=== PATIENT | female | born 1960 | race African-American/Black ===

== ENCOUNTER 2025-01-27 18:38 | Inpatient (IN) | payer OTHER ==
[~2025-01-27] VITALS: Ht 162.6 cm; Wt 63.0 kg
--- NOTE | 2025-01-27 19:59 | ED.PDOC ---
History of Present Illness HPI Comments 64-year-old female brought in by EMS presents with a chief complaint of body pain. Patient states that her pain is mainly localized to her bilateral lower legs. Patient mentions that she had an upper extremity EMJ procedure done with her neurologist today. 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 Patient also mentions that she stopped taking her gabapentin after two months, x2 days ago due to getting diarrhea. Patient is anxious. 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 No acute distress. Skin: Skin in warm, dry and intact without rashes or lesions. HEENT: The head is normocephalic and atraumatic. Conjunctivae are clear without exudates or hemorrhage. Sclera is non-icteric. Neck: Normal range of motion. No JVD. Cardiac: Regular rate Respiratory: No signs of respiratory distress. No Stridor. Extremities: Bilateral lower extremity nonpitting edema and tenderness Neurological: The patient is awake, alert and oriented to person, place, and time with normal speech. Speech is clear. There is no facial asymmetry. Psychiatric: Patient appears anxious Review of Systems: REVIEW OF SYSTEMS: No fever, no chills, or fatigue HEENT: No sore throat, no earache, no congestion, no neck pain. Cardiac: No chest pain. No palpitations. Lungs: No shortness of breath, no cough. GI: No nausea, no vomiting, positive diarrhea, no constipation, no abdominal pain : No dysuria, frequency, or urgency. No hematuria. Musculoskeletal: Positive Bilateral lower extremity pain Skin: No rash, no itching. 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 Was a procedure done?: No Differential Dx Considerations may include: DVT, rhabdomyolysis, neuropathy, medication side effect, procedure side effect, electrolyte imbalance, dehydration, lymphedema, medication withdrawal, anxiety, X-Ray, Labs, Meds, VS Vital Signs Date Time Temp Pulse Resp B/P (MAP) Pulse Ox O2 Delivery O2 Flow Rate FiO2 01/28/25 02:00 85 16 126/86 (99) 98 01/28/25 00:00 93 01/28/25 00:00 95 16 129/75 (93) 98 01/27/25 23:29 97.6 74 18 11/61 (45) 99 97.6 01/27/25 23:29 74 16 99 Room Air* 0 21 01/27/25 18:45 97.5 68 22 131/87 (102) 98 97.5 Lab Test 01/28/25 00:27 01/27/25 19:57 Range/Units Potassium Level 2.9 L 2.7 L 3.5-5.1 mmol/L White Blood Count 5.2 4.4-10.8 10^3/uL Red Blood Count 3.90 L 4.0-5.20 10^6/uL Hemoglobin 11.9 L 12.2-16.2 g/dL Hematocrit 35.7 L 36.0-46.0 % Mean Corpuscular Volume 91.7 80.0-100.0 fL Mean Corpuscular Hemoglobin 30.6 28.0-32.0 pg Mean Corpuscular Hemoglobin Concent 33.4 32.0-36.0 g/dL Red Cell Distribution Width 12.8 11.8-14.3 % Platelet Count 211 140-450 10^3/uL Mean Platelet Volume 8.7 6.9-10.8 fL Neutrophils (%) (Auto) 54.6 37.0-80.0 % Lymphocytes (%) (Auto) 32.2 10.0-50.0 % Monocytes (%) (Auto) 11.1 0.0-12.0 % Eosinophils (%) (Auto) 1.3 0.0-7.0 % Basophils (%) (Auto) 0.8 0.0-2.0 % Neutrophils # (Auto) 2.8 1.6-8.6 10 ^3/uL Lymphocytes # (Auto) 1.7 0.4-5.4 10 ^3/uL Monocytes # (Auto) 0.6 0-1.3 10 ^3/uL Eosinophils # (Auto) 0.1 0-0.8 10 ^3/uL Basophils # (Auto) 0 0-0.2 10 ^3/uL Nucleated Red Blood Cells 0.1 % Sodium Level 146 H 136-145 mmol/L Chloride Level 110 H 98-107 mmol/L Carbon Dioxide Level 23 20-31 mmol/L Anion Gap 13 5-15 Blood Urea Nitrogen 13 9-23 mg/dL Creatinine 0.62 0.550-1.02 mg/dL Glomerular Filtration Rate Calc 101 >90 mL/min BUN/Creatinine Ratio 21.0 H 10.0-20.0 Serum Glucose 102 74-106 mg/dL Calcium Level 9.5 8.7-10.4 mg/dL Magnesium Level 2.0 1.6-2.6 mg/dL Creatine Kinase 61 34-145 U/L Current Medications Medications (Trade) Dose Ordered Sig/Debi Route Start Time Stop Time Status Last Admin Clonazepam (KlonoPIN TABLET) 1 mg ONCE ONCE PO 01/27/25 20:00 01/27/25 20:01 DC 01/27/25 20:18 Tramadol HCl (Ultram) 50 mg ONCE ONCE PO 01/27/25 21:00 01/27/25 21:01 DC 01/27/25 22:24 Potassium Chloride (Klor-Con Tablet) 40 meq ONCE ONCE PO 01/27/25 21:00 01/27/25 21:01 DC 01/27/25 22:24 Sodium Chloride (Saline Lock Ns) 10 ml Q8HR IV 01/27/25 22:00 01/27/25 22:00 Acetaminophen/ Hydrocodone Bitart ([place] 5/325MG Tab) 1 tab Q4HP PRN PO 01/27/25 21:30 01/28/25 02:12 Clonazepam (KlonoPIN TABLET) 1 mg TID PO 01/27/25 22:00 01/27/25 23:13 Duloxetine HCl (Cymbalta Capsule) 60 mg BID PO 01/27/25 22:00 01/27/25 22:23 Potassium Chloride 50 ml @ 25 mls/hr ONCE ONCE IV 01/27/25 21:00 01/27/25 22:59 DC 01/27/25 23:12 Sodium Chloride 100 ml @ 50 mls/hr Q2H ONCE IV 01/27/25 21:00 01/27/25 22:59 DC 01/27/25 21:00 Potassium Chloride (Klor-Con Tablet) 40 meq ONCE ONCE PO 01/28/25 01:15 01/28/25 01:40 DC 01/28/25 02:13 Time of 1ST Reevaluation: 20:07 Reevaluation 1ST: Unchanged Patient Education/Counseling: Need For Follow Up Family Education/Counseling: Need For Follow Up Departure 1 Departure Time of Disposition: 20:58 Impression: Primary Impression: Hypokalemia Additional Impression: Intractable pain Disposition: ADMITTED INPATIENT Condition: Stable Comments 64-year-old female who presents with severe bilateral lower extremity pain. Potassium is 2.7. Potassium replacement initiated in the emergency department. Patient admitted to hospitalist service for further treatment, evaluation and monitoring. Extensive evaluation was performed in attempt to identify or rule out: (See differential diagnosis section) The following tests were ordered, and results were reviewed by me and discussed with patient: (See diagnostic results section) The following test were independently interpreted by me: N/A I reviewed and agreed with the following test results read by other providers: N/A I reviewed the following notes from the pt's past medical encounters: N/A Additional information was gathered from interviewing the following independent historians: EMS personnel, patient's son at bedside Discussion of management or test interpretation with external physician/other qualified health care specialist: N/A Addressed an acute or chronic illness that poses a threat to life or bodily function: Hypokalemia Decision regarding hospitalization or escalation of hospital level of care: Risk and benefits of admission for further treatment of patient's condition was considered. Due to patient's current clinical condition, high risk of decline and poor outcome if discharged and need for further inpatient management and monitoring, patient will be admitted to the hospital. Drug therapy requiring intensive monitoring for toxicity: IV potassium Parenteral controlled substances: N/A Decision regarding elective major surgery with identified patient or procedure risk factors: N/A Decision regarding emergency major surgery: N/A Decision not to resuscitate or to de-escalate care because of poor prognosis: N/A Diagnosis or treatment significantly limited by social determinants of health: N/A Critical Care Note Critical Care Time?: No Stability Stability form required: No Heart Score Heart Score: Heart Score Response (Comments) Value History N/A 0 EKG N/A 0 Age N/A 0 Risk Factors N/A 0 Troponin N/A 0 Total 0 I personally scribed for RAPHAEL THOMPSON MD ([email or web address]) on 01/27/25 at 19:59. Electronically submitted by Zacarias Thompson ([email or web address]). RAPHAEL THOMPSON MD January 27, 2025 19:59
[2025-01-27 20:12] LABS: Basophils # (auto) 0 10 ^3/uL (0-0.2); Basophils % (auto) 0.8 % (0.0-2.0); Eosinophils # (auto) 0.1 10 ^3/uL (0-0.8); Eosinophils % (auto) 1.3 % (0.0-7.0); Hematocrit 35.7 % (36.0-46.0); Hemoglobin 11.9 g/dL (12.2-16.2); Lymphocytes # (auto) 1.7 10 ^3/uL (0.4-5.4); Lymphocytes % (auto) 32.2 % (10.0-50.0); Mean Corpuscular Hemoglobin 30.6 pg (28.0-32.0); Mean Corpuscular Hgb Conc. 33.4 g/dL (32.0-36.0); Mean Corpuscular Volume 91.7 fL (80.0-100.0); Monocytes # (auto) 0.6 10 ^3/uL (0-1.3); Monocytes % (auto) 11.1 % (0.0-12.0); Neutrophils # (auto) 2.8 10 ^3/uL (1.6-8.6); Neutrophils % (auto) 54.6 % (37.0-80.0); Nucleated Red Blood Cells % 0.1 %; Platelet Count (auto) 211 10^3/uL (140-450); Red Cell Distribution Width 12.8 % (11.8-14.3); White Blood Cell 5.2 10^3/uL (4.4-10.8)
[2025-01-27 20:16] LABS: Anion Gap 13 (5-15); Calcium 9.5 mg/dL (8.7-10.4); Carbon Dioxide 23 mmol/L (20-31)
[2025-01-27] MEDS: clonazePAM 0.5 MG TAB PO ONE (20:18)
[2025-01-27] MEDS: KETOROLAC TROMETH 30 MG/ML 1ML VIAL IM ONE (20:19)
[2025-01-27] MEDS: ACETAMINOPHEN 325 MG TAB PO ONE (20:19)
[2025-01-27 20:21] LABS: Blood Urea Nitrogen 13 mg/dL (9-23); Glucose 102 mg/dL (74-106)
[2025-01-27 20:23] LABS: Creatine Kinase IFCC 61 U/L (34-145)
[2025-01-27 20:42] LABS: Chloride 110 mmol/L (98-107); Potassium 2.7 mmol/L (3.5-5.1); Sodium 146 mmol/L (136-145)
[2025-01-27] MEDS: SODIUM CHL 0.9% 100 ML IV ONE (21:00)
[2025-01-27] MEDS: SODIUM CHLORIDE 0.9% 1,000 ML IV ONE (21:00)
[2025-01-27] MEDS ORDERED: POTASSIUM CHL 20MEQ/100ML 100 ML IV ONE (21:00)
[2025-01-27] MEDS ORDERED: DOCUSATE SOD 100 MG CAP PO PRN (21:30)
[2025-01-27] MEDS ORDERED: MORPHINE SULFATE INJ 2 MG/ml SYRG IV PRN (21:30)
[2025-01-27] MEDS ORDERED: ONDANSETRON HCL 4 MG/2 ML VIAL IV PRN (21:30)
[2025-01-27] MEDS ORDERED: ACETAMINOPHEN 325 MG TAB PO PRN (21:30)
[2025-01-27] MEDS: SODIUM CHLOR 0.9% PF (SALINE LOCK) 10ML VIAL/SYR IV SCH (22:00)
[2025-01-27] MEDS: clonazePAM 0.5 MG TAB PO SCH (22:00)
[2025-01-27] MEDS: DULoxetine HCL 30 MG CAP PO SCH (22:23)
[2025-01-27] MEDS: POTASSIUM CHL 20 Meq TABLET PO ONE (22:24)
[2025-01-27] MEDS: traMADol HCL 50 MG TAB PO ONE (22:24)
--- NOTE | 2025-01-27 22:43 | DVH ---
BILATERAL LOWER EXTREMITY VENOUS DOPPLER ULTRASOUND CLINICAL HISTORY: B/L Le pain r/o dvt TECHNIQUE: Grayscale ultrasound with compression, color Doppler flow imaging with pulsed duplex sonog nabeel of the bilateral lower extremity deep venous system from the common femoral veins through the p opliteal veins is performed. COMPARISON: None FINDINGS: Right common femoral vein: Negative. Right greater saphenous vein: Negative. Right deep femoral vein: Negative. Right femoral vein: Negative. Right popliteal vein: Negative. Left common femoral vein: Negative. Left greater saphenous vein: Negative. Left deep femoral vein: Negative. Left femoral vein: Negative. Left popliteal vein: Negative. Other: Imaged bilateral popliteal bifurcations demonstrate color flow. IMPRESSION: No sonographic evidence of deep venous thrombosis in either lower extremity at this time.
[2025-01-27] MEDS: POTASSIUM CHL 20MEQ/50ML 50 ML IV ONE (23:12)
[2025-01-27 23:29] VITALS: PULSE 74; RESP 16; O2SAT 99
--- NOTE | 2025-01-28 00:41 | DVH ---
Exam: CT CT AB PEL WO CON-NO ORAL OR IV History: diarrhea pain Comparison Study: None Technique: Multidetector spiral CT of the abdomen was performed from lung bases to pubic symphysis. I maging was performed without IV contrast. Axial, coronal and sagittal multiplanar reformats were obta ined from the axial data set by the technologist. Radiation Dose : 1. Abdomen/Pelvis: CTDIvol 9.35 mGy, DLP 486.84 mGy*cm. Findings: Evaluation of solid organs is limited due to lack of intravenous contrast use. Lung Bases: No acute or significant lung base finding. Moderate bibasilar atelectasis. Normal heart s ize. No pleural or pericardial effusion. Bilateral breast prostheses. Liver: The liver is normal in size. No focal lesions. Gallbladder and Biliary Tree: The gallbladder is surgically absent. Spleen: Unremarkable Pancreas: The pancreas is grossly normal in appearance. Adrenal Glands: Unremarkable Kidneys: Kidneys are grossly normal without calculi or hydronephrosis. Bladder: Grossly unremarkable for degree of distention. Bowel: The stomach is grossly normal in appearance. Right paramedian midline ventral abdominal wall h ernia contains a segment of bowel without definite evidence of incarceration or obstruction. Small clinton wel and colon are otherwise grossly normal in caliber and distribution. Anastomotic bowel sutures wi thin the left upper quadrant. The appendix is not visualized; however, no secondary findings of acute appendicitis identified. Ascites: Absent Lymphadenopathy: No mesenteric, retroperitoneal or periportal lymphadenopathy. Abdominal Wall and Mesentery: Unremarkable. Vasculature: The visualized abdominal aorta is normal in size and caliber. Evaluation of abdominal a nd pelvic vessels is limited due to lack of intravenous contrast. Pelvic Organs: Unremarkable Musculoskeletal: No aggressive focal bony lesions, acute fractures or dislocation. IMPRESSION: 1. Postsurgical changes including anastomotic bowel sutures within the left upper quadrant and ventra l abdominal wall surgical scar. A right paramedian ventral abdominal wall hernia contains a single s egment of bowel without gross evidence of incarceration or obstruction. Radiation optimization: All CT scans at this facility use at least one of these dose optimization lakes[place] hniques: automated exposure control mA and/or kV adjustment per patient size (includes targeted exam s where dose is matched to clinical indication) or iterative reconstruction.
[2025-01-28] MEDS ORDERED: ONDANSETRON HCL 4 MG/2 ML VIAL IV PRN (01:15)
[2025-01-28] MEDS ORDERED: NITROGLYCERIN 0.4 MG SL TAB SL PRN (01:15)
[2025-01-28] MEDS ORDERED: DOCUSATE SOD 100 MG CAP PO PRN (01:15)
[2025-01-28] MEDS ORDERED: HYDROcodone-ACET 5/325MG TAB PO PRN (01:15)
[2025-01-28] MEDS ORDERED: ACETAMINOPHEN 325 MG TAB PO PRN (01:15)
[2025-01-28] MEDS ORDERED: MORPHINE SULFATE INJ 2 MG/ml SYRG IV PRN (01:15)
[2025-01-28] MEDS: HYDROcodone-ACET 5/325MG TAB PO PRN (02:12)
[2025-01-28] MEDS: POTASSIUM CHL 20 Meq TABLET PO ONE ×2 (02:13→11:05)
--- NOTE | 2025-01-28 04:04 | DVHHP2 ---
MICHI POON QUALITY AND RELIABILITY ENGINEER 01/28/25 0404: History of Present Illness Reason for Visit: Generalized aches and leg pain History of Present Illness 64-year-old female with past medical history of DM, neuropathy, anxiety, depression, chronic BLE edema secondary to an undisclosed autoimmune disorder presents with complaints of anxiety, generalized body aches, leg pain x1 day. Patient is also endorsing diarrhea x1 month. Patient states her gabapentin was discontinued out of concern that it was contributing to diarrhea. Patient states she ran out of her clonazepam and is not able to get a refill for 5 days. Also endorses leg swelling has worsened since her Lasix was discontinued 3 weeks ago. States Lasix was discontinued because of risk for low potassium. During the emergency department evaluation potassium level found to be low at 2.7. Despite receiving 40 mEq of oral potassium and 20 mEq of IV potassium potassium level maintain low at 2.9. BLE venous Doppler negative for acute DVT. CT of the abdomen and pelvis negative for acute findings. Psych: Anxiety, Depression Endocrine: Diabetes Smoke: No ALCOHOL: none Drugs: None Lives: with Family Review of Systems Constitutional: Yes: Weakness, Other (Anxious); No: Fever, Chills, Sweats, Malaise Eyes: No: Pain, Vision change, Conjunctivae inflammation, Eyelid inflammation, Other, Redness ENT: No: Ear pain, Ear discharge, Nose pain, Nose discharge, Nose congestion, Mouth pain, Mouth swelling, Throat pain, Throat swelling, Other Respiratory: No: Cough, Dry, Shortness of breath, SOB with excertion, Wheezing, Hemoptysis, Pleuritic Pain, Sputum, Wheezing, Other Cardiovascular: Edema; No: Chest Pain, Palpitations, Orthopnea, Paroxysmal Noc. Dyspnea, Lt Headedness, Other Gastrointestinal: Diarrhea; No: Nausea, Vomiting, Abdominal Pain, Constipation, Melena, Hematochezia, Other Genitourinary: No Dysuria, No Frequency, No Incontinence, No Hematuria, No Retention, No Other Musculoskeletal: other (Leg edema), leg pain; No: neck pain, shoulder pain, arm pain, back pain, hand pain, foot pain Skin: No: Rash, Lesions, Jaundice, Bruising, Other Neurological: No: Weakness, Numbness, Incoordination, Change in speech, Confusion, Seizures, Other Allergies: Coded Allergies: Vancomycin (Verified Allergy, Severe, 01/27/25) Medications Current Medications Medications Dose Ordered Sig/Debi Route Start Time Stop Time Status Last Admin Dose Admin Sodium Chloride 10 ml Q8HR IV 01/27/25 22:00 01/27/25 22:00 10 ML Acetaminophen/ Hydrocodone Bitart 1 tab Q4HP PRN PO 01/27/25 21:30 01/28/25 02:12 1 TAB Ondansetron HCl 4 mg Q4HP PRN IV 01/27/25 21:30 Docusate Sodium 100 mg BIDPRN PRN PO 01/27/25 21:30 Acetaminophen 650 mg Q6HP PRN PO 01/27/25 21:30 Morphine Sulfate 2 mg Q4HPRN PRN IV 01/27/25 21:30 Clonazepam 1 mg TID PO 01/27/25 22:00 01/27/25 23:13 1 MG Duloxetine HCl 60 mg BID PO 01/27/25 22:00 01/27/25 22:23 60 MG Docusate Sodium 100 mg BIDPRN PRN PO 01/28/25 01:15 Acetaminophen 650 mg Q6HP PRN PO 01/28/25 01:15 Acetaminophen/ Hydrocodone Bitart 1 tab Q4HP PRN PO 01/28/25 01:15 Ondansetron HCl 4 mg Q4HP PRN IV 01/28/25 01:15 Nitroglycerin 0.4 mg Q5MINP PRN SL 01/28/25 01:15 Morphine Sulfate 2 mg Q30M PRN IV 01/28/25 01:15 Potassium Chloride 20 meq DAILY PO 01/28/25 10:00 UNV Furosemide 20 mg BIDD PO 01/28/25 06:00 UNV Exam Vital Signs Vital Signs Date Time Temp Pulse Resp B/P (MAP) Pulse Ox O2 Delivery O2 Flow Rate FiO2 01/28/25 02:00 85 16 126/86 (99) 98 01/27/25 23:29 97.6 97.6 01/27/25 23:29 Room Air* 0 21 General Appearance: Alert, Oriented X3, Cooperative, mild distress HEENT: Atraumatic, PERRLA, EOMI Respiratory: Clear to auscultation, Normal air movement Cardiovascular: Regular rate, Normal S1, Normal S2 Abdominal: Normal bowel sounds, Soft, No tenderness Extremities: No clubbing, Other (BLE Weeping edema) Skin: No breakdown Neuro: Normal speech, Strength at 01/27 X4 ext Psych/Mental Status: Mental status NL, Mood NL Labs/Xrays Labs Test 01/28/25 00:27 01/27/25 19:57 Range/Units Potassium Level 2.9 L 3.5-5.1 mmol/L White Blood Count 5.2 4.4-10.8 10^3/uL Red Blood Count 3.90 L 4.0-5.20 10^6/uL Hemoglobin 11.9 L 12.2-16.2 g/dL Hematocrit 35.7 L 36.0-46.0 % Mean Corpuscular Volume 91.7 80.0-100.0 fL Mean Corpuscular Hemoglobin 30.6 28.0-32.0 pg Mean Corpuscular Hemoglobin Concent 33.4 32.0-36.0 g/dL Red Cell Distribution Width 12.8 11.8-14.3 % Platelet Count 211 140-450 10^3/uL Mean Platelet Volume 8.7 6.9-10.8 fL Neutrophils (%) (Auto) 54.6 37.0-80.0 % Lymphocytes (%) (Auto) 32.2 10.0-50.0 % Monocytes (%) (Auto) 11.1 0.0-12.0 % Eosinophils (%) (Auto) 1.3 0.0-7.0 % Basophils (%) (Auto) 0.8 0.0-2.0 % Neutrophils # (Auto) 2.8 1.6-8.6 10 ^3/uL Lymphocytes # (Auto) 1.7 0.4-5.4 10 ^3/uL Monocytes # (Auto) 0.6 0-1.3 10 ^3/uL Eosinophils # (Auto) 0.1 0-0.8 10 ^3/uL Basophils # (Auto) 0 0-0.2 10 ^3/uL Nucleated Red Blood Cells 0.1 % Sodium Level 146 H 136-145 mmol/L Chloride Level 110 H 98-107 mmol/L Carbon Dioxide Level 23 20-31 mmol/L Anion Gap 13 5-15 Blood Urea Nitrogen 13 9-23 mg/dL Creatinine 0.62 0.550-1.02 mg/dL Glomerular Filtration Rate Calc 101 >90 mL/min BUN/Creatinine Ratio 21.0 H 10.0-20.0 Serum Glucose 102 74-106 mg/dL Calcium Level 9.5 8.7-10.4 mg/dL Magnesium Level 2.0 1.6-2.6 mg/dL Creatine Kinase 61 34-145 U/L Assessment/Plan Assessment/Plan Hypokalemia Anxiety DM BLE edema Plan 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 Correct electrolytes as needed. Restart Lasix with potassium supplementation. Blood glucose check ACHS with regular insulin sliding scale coverage Continue home medications. Physical therapy evaluation GI ppx pepcid / dvt ppx lovenox Plan discussed with: Patient My Orders Orders - MICHI POON NP Procedure Category Date Status Time Ct Ab Pel Wo Con-No CT 01/27/25 Resulted Oral Or Iv 22:35 Admit ADMIT 01/28/25 Transmitted 01:10 Code Status CODE 01/28/25 Transmitted 01:10 Vital Signs [facility] 01/28/25 In Process 01:10 Review Orders With [facility] 01/28/25 In Process Adm. 01:10 Consistent DIET 01/28/25 Transmitted Carb(Ccho)Diabetes Breakfast Oxygen By Face Mask RT 01/28/25 Transmitted 01:10 Docusate Sodium PHA 01/28/25 In Process Capsule (Colace 01:15 Acetaminophen Tablet PHA 01/28/25 In Process (Tylenol Tablet) 01:15 Notify Of Changes TANIA 01/28/25 In Process From Base 01:10 Advance Directive TANIA 01/28/25 In Process 01:10 Echo 2d Mode Cardiac US 01/28/25 Logged DOP 01:10 Basic Metabolic Panel LAB 01/28/25 Logged 05:00 Basic Metabolic Panel LAB 01/29/25 Verified 05:00 Basic Metabolic Panel LAB 01/30/25 Verified 05:00 Complete Blood Count LAB 01/28/25 Logged 05:00 Complete Blood Count LAB 01/29/25 Verified 05:00 Complete Blood Count LAB 01/30/25 Verified 05:00 Complete Blood Count LAB 01/31/25 Verified 05:00 Complete Blood Count LAB 02/01/25 Verified 05:00 Patient Condition ORDERS 01/28/25 Transmitted 01:10 Allergies TANIA 01/28/25 In Process 01:10 Hydrocodone-Acet PHA 01/28/25 In Process 5/325mg Tab ([place] 01:15 Ondansetron Hcl PHA 01/28/25 In Process (Zofran) 01:15 Nitroglycerin PHA 01/28/25 In Process Sublingual (Ntrostat 01:15 Morphine Sulfate PHA 01/28/25 In Process Injection 01:15 Stat Ekg For Chest TANIA 01/28/25 In Process Pain 01:10 Notify Md Of Changes TANIA 01/28/25 In Process From Base 01:10 Display Carver For [facility] 01/28/25 In Process 24 Hours 01:10 Emergency Dysrhythmia [facility] 01/28/25 In Process Protocol 01:10 Rhythm Strips Once [facility] 01/28/25 In Process Every Shift 01:10 Oxygen By Nasal RT 01/28/25 Transmitted Cannula 01:10 Pt Request For Service PT 01/28/25 Transmitted 03:46 Potassium Er Tablet PHA 01/28/25 Logged (Klor-Con Tablet) 10:00 Furosemide Tablet PHA 01/28/25 Logged (Lasix Tablet) 06:00 Date of Service: January 28, 2025 Billing Provider: IVETTE URIAS MD Common Visit Codes: NOT BILLABLE IVETTE URIAS MD 01/28/25 1217: Review of Systems Allergies: Coded Allergies: Vancomycin (Verified Allergy, Severe, 01/27/25) Assessment/Plan Assessment/Plan Patient's chart is reviewed and discussed with the nurse practitioner. Patient is seen and evaluated by me today. I agree with the nurse practitioner's evaluation, documentation, assessment and care plan as outlined. Plan discussed with: Patient POONMICHI NP January 28, 2025 04:04 IVETTE URIAS MD January 28, 2025 12:17
[2025-01-28] MEDS: FUROSEMIDE 20 MG TAB PO SCH (06:03)
[2025-01-28 06:28] LABS: Basophils # (auto) 0 10 ^3/uL (0-0.2); Basophils % (auto) 0.5 % (0.0-2.0); Eosinophils # (auto) 0.1 10 ^3/uL (0-0.8); Eosinophils % (auto) 1.6 % (0.0-7.0); Hematocrit 31.7 % (36.0-46.0); Hemoglobin 10.9 g/dL (12.2-16.2); Lymphocytes # (auto) 1.4 10 ^3/uL (0.4-5.4); Lymphocytes % (auto) 34.3 % (10.0-50.0); Mean Corpuscular Hgb Conc. 34.4 g/dL (32.0-36.0); Monocytes # (auto) 0.4 10 ^3/uL (0-1.3); Monocytes % (auto) 10.5 % (0.0-12.0); Neutrophils # (auto) 2.2 10 ^3/uL (1.6-8.6); Neutrophils % (auto) 53.1 % (37.0-80.0); Nucleated Red Blood Cells % 0.1 %; Platelet Count (auto) 191 10^3/uL (140-450); Red Blood Cells 3.52 10^6/uL (4.0-5.20); Red Cell Distribution Width 12.8 % (11.8-14.3); White Blood Cell 4.1 10^3/uL (4.4-10.8)
[2025-01-28 06:32] LABS: Alanine Aminotransferase 21 U/L (7-40); Albumin 3.6 g/dL (3.2-4.8); Anion Gap 10 (5-15); Aspartate Aminotransferase 20 U/L (13-40); Blood Urea Nitrogen 11 mg/dL (9-23); Calcium 9.3 mg/dL (8.7-10.4); Carbon Dioxide 25 mmol/L (20-31); Sodium 145 mmol/L (136-145)
[2025-01-28 06:33] LABS: Alkaline Phosphatase 141 U/L (46-116); Bilirubin, Total 0.4 mg/dL (0.2-1.0); Chloride 110 mmol/L (98-107); Glucose 110 mg/dL (74-106); Potassium 3.5 mmol/L (3.5-5.1)
[2025-01-28 09:03] VITALS: PULSE 74; RESP 19; O2SAT 97
[2025-01-28] MEDS: POTASSIUM CHL 20 Meq TABLET PO SCH (09:11)
[2025-01-28 11:34] VITALS: TEMP 97.9
[2025-01-28] MEDS ORDERED: CHOLESTYRAMINE 4 GM POWDER PO ONE (11:45)
[2025-01-28] MEDS ORDERED: LOPERAMIDE HCL 2 MG CAP/TAB PO PRN (11:45)
[2025-01-28 12:00] VITALS: BP 124/64; PULSE 62; RESP 22; O2SAT 98
[2025-01-28] MEDS ORDERED: CLON-1003 PO (12:13)
[2025-01-28] MEDS ORDERED: FLUO40CA PO (12:13)
[2025-01-28] MEDS ORDERED: CHL4PW PO (12:16)
--- NOTE | 2025-01-28 12:25 | DVHDS2 ---
Discharge Summary Date of Admission January 28, 2025 at 01:10 Date of Discharge: January 28, 2025 Labs/Diagnostic Data: Laboratory Results Test 01/28/25 05:29 01/28/25 05:24 01/27/25 19:57 Sodium Level 145 mmol/L (136-145) Potassium Level 3.5 mmol/L (3.5-5.1) Chloride Level 110 mmol/L (98-107) Carbon Dioxide Level 25 mmol/L (20-31) Anion Gap 10 (5-15) Blood Urea Nitrogen 11 mg/dL (9-23) Creatinine 0.61 mg/dL (0.550-1.02) Glomerular Filtration Rate Calc 101 mL/min (>90) BUN/Creatinine Ratio 18.0 (10.0-20.0) Serum Glucose 110 mg/dL (74-106) Calcium Level 9.3 mg/dL (8.7-10.4) Total Bilirubin 0.4 mg/dL (0.2-1.0) Aspartate Amino Transferase (AST) 20 U/L (13-40) Alanine Aminotransferase (ALT) 21 U/L (7-40) Alkaline Phosphatase 141 U/L (46-116) Total Protein 6.0 g/dL (5.7-8.2) Albumin 3.6 g/dL (3.2-4.8) White Blood Count 4.1 10^3/uL (4.4-10.8) Red Blood Count 3.52 10^6/uL (4.0-5.20) Hemoglobin 10.9 g/dL (12.2-16.2) Hematocrit 31.7 % (36.0-46.0) Mean Corpuscular Volume 90.0 fL (80.0-100.0) Mean Corpuscular Hemoglobin 31.0 pg (28.0-32.0) Mean Corpuscular Hemoglobin Concent 34.4 g/dL (32.0-36.0) Red Cell Distribution Width 12.8 % (11.8-14.3) Platelet Count 191 10^3/uL (140-450) Mean Platelet Volume 9.0 fL (6.9-10.8) Neutrophils (%) (Auto) 53.1 % (37.0-80.0) Lymphocytes (%) (Auto) 34.3 % (10.0-50.0) Monocytes (%) (Auto) 10.5 % (0.0-12.0) Eosinophils (%) (Auto) 1.6 % (0.0-7.0) Basophils (%) (Auto) 0.5 % (0.0-2.0) Neutrophils # (Auto) 2.2 10 ^3/uL (1.6-8.6) Lymphocytes # (Auto) 1.4 10 ^3/uL (0.4-5.4) Monocytes # (Auto) 0.4 10 ^3/uL (0-1.3) Eosinophils # (Auto) 0.1 10 ^3/uL (0-0.8) Basophils # (Auto) 0 10 ^3/uL (0-0.2) Nucleated Red Blood Cells 0.1 % Magnesium Level 2.0 mg/dL (1.6-2.6) Creatine Kinase 61 U/L (34-145) Other Laboratory Tests 01/28/25 05:29 01/28/25 05:24 Brief Hx & Hospital Course: 64-year-old female with past medical history of DM, neuropathy, anxiety, depression, chronic BLE edema secondary to an undisclosed autoimmune disorder presents with complaints of anxiety, generalized body aches, leg pain x1 day. Patient is also endorsing diarrhea x1 month. Patient states her gabapentin was discontinued out of concern that it was contributing to diarrhea. Patient states she ran out of her clonazepam and is not able to get a refill for 5 days. Also endorses leg swelling has worsened since her Lasix was discontinued 3 weeks ago. States Lasix was discontinued because of risk for low potassium. During the emergency department evaluation potassium level found to be low at 2.7. Despite receiving 40 mEq of oral potassium and 20 mEq of IV potassium potassium level maintain low at 2.9. BLE venous Doppler negative for acute DVT. CT of the abdomen and pelvis negative for acute findings. She is admitted and received potassium replacement. Her potassium has normalized. Patient is not having any further diarrhea. Patient prescribed Imodium as needed and Crestor and stool bulking agent. Patient is however requested her home medications including her benzodiazepine and antidepressant given as she ran out of them and thinks she is going through withdrawals. Therefore she is given few days' worth of these medications and advised to follow up with primary care physician with the [facility] and also visit [facility] urgent Care for further evaluation monitoring. Otherwise given in the hospital she is clinically stable not having any other issues she has been discharged home in stable condition. I have talked with the patient regarding her hospital diagnosis, treatment she received, discharge medications, discharge instructions and follow-up plan of care. She has verbalized understanding of these and agree with the care plan as outlined. Condition at Discharge: Stable Final Diagnosis/Problems List Chronic diarrhea, hypokalemia, anxiety/depressive disorder Discharge Disposition: Home Discharge Instruct/Medications Diet: Consistent carbohydrate, Cardiac 2g Na,low cholest Activity: No Restrictions, As Tolerated Follow Up/Referral: Primary care physician with the [facility] next week. Follow up at [facility] urgent Care on 01/30/2025. call urgent care number [phone] for directions. Medications: As prescribed New Medications: Cholestyramine (Questran Powder) 4 Gm Pw 4 GM PO BIDBRS PRN, #10 POW As needed for loose stool/diarrhea Clonazepam (Klonopin) 0.5 Mg Tab 1 TAB PO BID PRN, #7 TAB 1 Refill Fluoxetine Hcl (Fluoxetine Hcl) 40 Mg Cap 1 CAP PO QAM, #30 CAP Discharge Statement: "Patient was advised to return to the ER or call 911 if any headaches, dizziness, shortness of breath, chest pain, abdominal pain, bleeding, fevers, or worsening of medical condition. Patient was counseled about treatment plan, medications, possible side effects, patientverbalized understanding. All questions were answered to the best of my ability. This discharge took greater then 30 minutes in planning, reviewing documentation, counseling the patient, and discussing with other team members." ASSESSMENT ASSESSMENT Assessment Chronic diarrhea, hypokalemia, anxiety/depressive disorder IVETTE URIAS MD January 28, 2025 12:25
[2025-01-28] MEDS ORDERED: POTASSIUM CHL 20 Meq TABLET PO SCH (22:00)
--- NOTE | 2025-01-30 12:49 | DVHSR ---
APPROVED REPORT EXAM: Two-dimensional and M-mode echocardiogram with Doppler and color Doppler. Blood Pressure: 135/77 mmHg INDICATION ble edema RISK FACTORS Height: 5'4", Weight: 138 DIMENSIONS LVDd (3.8-5.7cm)LA (2D)3.2 (1.9-4.0cm)Aortic Root3.2 (2.0-3.7cm) LVDs (2.5-4.0cm)LA (MM) (1.9-4.0cm)Aortic Cusp Exc1.8 (1.5-2.0cm) EF (%) 64.0 (55-70%)Rt. Atrium3.8 (1.9-4.0cm)Asc. Aorta cm Mitral Valve MitralMitral Stenosis E wave1.02m/sMV Mean GR.mmHg A wave0.85m/sMV Peak GR.mmHg E/A ratio1.22D MVAcm2 DECEL [id number] 1/2 Timems Aortic Valve Aortic ValveAortic Stenosis V11.13m/Himanshu Mean GR.3mmHg V21.14m/Himanshu Peak GR.5mmHg LVOT Diameter2.0 (1.8-2.4cm)Doppler AVA3.11cm2 Pulmonic Valve V20.71m/s Other Information Technically limited study due to body habitus and implants. Conclusion lvef 60% moderate LVH normal rv function left atrium enlarged no severe valve abnormalities noted
== END 2025-01-28 14:15 | disposition left against medical advice (07) | DRG 641 ==
LOC: EDBD 18:38 → ER 18:38 → OVERFLOW 01-28 01:10
PROVIDERS: ADMIT Nurse Practitioner Family; ATTEND Nurse Practitioner Family
DX: E87.6 Hypokalemia (principal); K52.9 Noninfective gastroenteritis and colitis, unspecified; F41.9 Anxiety disorder, unspecified; F32.A Depression, unspecified; Z53.29 Procedure and treatment not carried out because of patient's decision for other reasons; R60.0 Localized edema; E11.40 Type 2 diabetes mellitus with diabetic neuropathy, unspecified; Z88.1 Allergy status to other antibiotic agents
CPT/HCPCS: 36415; 74176; 80048; 80053; 82550; 83735; 84132; 85025; 93306; 93970; 97163; G0378; J3480

== ENCOUNTER 2025-04-07 14:42 | Emergency (ER) | payer MEDICARE, OTHER ==
[~2025-04-07] VITALS: Ht 172.7 cm; Wt 90.9 kg
[~2025-04-07 14:42] MED LIST: CHL4PW PO; CLON-1003 PO; FLUO40CA PO
[2025-04-07 14:47] VITALS: TEMP 98
--- NOTE | 2025-04-07 14:56 | ED.PDOC ---
Altered Mental Status HPI Comments 64 y.o female on hospice with PMHX of CIPD and CVA, presents to the ED via EMS for an evaluation of an overdose. EMS reports son who is JESSICA went out to run some errands and when he came back home, noticed patient more altered and drowsy. Hospice nurse was on scene who also confirmed patient was not at her normal baseline. Patient reports she took her medications today including for pain due to chronic total body pain. Patient took 2 tablets of 1mg Lorazapam, 4 tablets of 0.5mg Alprazolam, and 40mg of Morphine oral liquid. Patient is drowsy, going in and out of sleep upon ED arrival but is able to answer all questions and is aware of her surrounds, name and . Patient denies any pain at this time. Unknown status, will call [facility] to update care of plan. Chief Complaint: Overdose Time Seen by MD: 14:41 Primary Care Provider: UNKNOWN Reviewed Notes: Nurses Notes, Metal Cut Off Saw Tender Notes, Medications, Allergies Allergies: Coded Allergies: Vancomycin (Verified Allergy, Severe, 01/27/25) Home Meds Active Scripts Cholestyramine (QUESTRAN POWDER) 4 Gm Pw, 4 GM PO BIDBRS PRN, #10 POW As needed for loose stool/diarrhea Prov:IVETTE URIAS MD 01/28/25 Clonazepam (Klonopin) 0.5 Mg Tab, 1 TAB PO BID PRN, #7 TAB 1 Refill Prov:IVETTE URIAS MD 01/28/25 Fluoxetine Hcl (Fluoxetine Hcl) 40 Mg Cap, 1 CAP PO QAM, #30 CAP Prov:IVETTE URIAS MD 01/28/25 Information Source: Patient, Emergency Med Personnel Mode of Arrival: EMS Severity: Moderate Timing: Hours Duration: Since onset Prehospital treatment: 12 Lead EKG, Charging Board Operator Quality: Decreased Alertness, Confusion Recent: Other History of: CVA Associated Signs and Symptoms: None Past Medical History PAST MEDICAL HISTORY: Anxiety, CVA Past Medical History (Other): CIPD Surgical History: Cholecystectomy Surgical History (Other): gastric bypass TOE STRIPPER History: Denies all TOE STRIPPER Hx Family History Family History: Reviewed,noncontributory to illness Social History Smoker: Non-Smoker Alcohol: Denies ETOH Use Drugs: Denies Drug Use Lives In: Home Unable to Obtain due to: Other (patient presents drowsy ) Physical Exam General Appearance: No Apparent Distress HEENT: Normal ENT Inspection, Pharynx Normal, TMs Normal Neck: Full Range of Motion, Non-Tender, Normal, Normal Inspection Respiratory: Chest Non-Tender, Lungs Clear, No Accessory Muscle Use, No Respiratory Distress, Normal Breath Sounds Cardiovascular: No Edema, No JVD, No Murmur, No Gallop, Normal Peripheral Pulses, Regular Rate/Rhythm Breast Exam: Deferred Gastrointestinal: No Organomegaly, Non Tender, No Pulsatile Mass, Normal Bowel Sounds, Soft Genitalia: Deferred Pelvic: Deferred Rectal: Deferred Extremities: No calf tenderness, Normal capillary refill, Pedal edema Musculoskeletal : Apperance: Normal Neurologic: hotel assistant manager II-XII nml as Tested, Motor Weakness, No Sensory Deficits, Other (Lethargic) Cerebellar Function: Unable to Test Reflexes: Normal Skin: Dry, Normal Color, Warm Lymphatic: No Adenopathy EKG EKG : Pulse Rate (adult): 82 Cardiac Rhythm: NSR Was a procedure done? Was a procedure done?: No Differential Diagnosis (ALOC) Differential Diagnosis: Dehydration, Hypoxemia, Closed Head Injury, CVA, Drug Overdose, Heart Failure, Renal Failure X-Ray, Labs, Meds, VS Vital Signs Date Time Temp Pulse Resp B/P (MAP) Pulse Ox O2 Delivery O2 Flow Rate FiO2 04/07/25 15:14 Nasal Cannula* 2 28 04/07/25 15:13 72 15 107/68 (81) 98 04/07/25 14:56 82 04/07/25 14:47 98.0 81 18 121/76 (91) 100 98.0 04/07/25 14:45 82 Lab Test 04/07/25 15:14 Range/Units White Blood Count 3.3 L 4.4-10.8 10^3/uL Red Blood Count 3.51 L 4.0-5.20 10^6/uL Hemoglobin 11.0 L 12.2-16.2 g/dL Hematocrit 32.8 L 36.0-46.0 % Mean Corpuscular Volume 93.6 80.0-100.0 fL Mean Corpuscular Hemoglobin 31.4 28.0-32.0 pg Mean Corpuscular Hemoglobin Concent 33.6 32.0-36.0 g/dL Red Cell Distribution Width 14.2 11.8-14.3 % Platelet Count 216 140-450 10^3/uL Mean Platelet Volume 8.6 6.9-10.8 fL Neutrophils (%) (Auto) 42.5 37.0-80.0 % Lymphocytes (%) (Auto) 39.9 10.0-50.0 % Monocytes (%) (Auto) 13.1 H 0.0-12.0 % Eosinophils (%) (Auto) 3.4 0.0-7.0 % Basophils (%) (Auto) 1.1 0.0-2.0 % Neutrophils # (Auto) 1.4 L 1.6-8.6 10 ^3/uL Lymphocytes # (Auto) 1.3 0.4-5.4 10 ^3/uL Monocytes # (Auto) 0.4 0-1.3 10 ^3/uL Eosinophils # (Auto) 0.1 0-0.8 10 ^3/uL Basophils # (Auto) 0 0-0.2 10 ^3/uL Nucleated Red Blood Cells 0.1 % Sodium Level 143 136-145 mmol/L Potassium Level 3.7 3.5-5.1 mmol/L Chloride Level 109 H 98-107 mmol/L Carbon Dioxide Level 29 20-31 mmol/L Anion Gap 5 5-15 Blood Urea Nitrogen 14 9-23 mg/dL Creatinine 0.56 0.550-1.02 mg/dL Glomerular Filtration Rate Calc 103 >90 mL/min BUN/Creatinine Ratio 25.0 H 10.0-20.0 Serum Glucose 79 74-106 mg/dL Calcium Level 9.2 8.7-10.4 mg/dL Salicylates Level < 3.0 -30 mg/dL Acetaminophen Level < 2.0 L 10.0-20.0 UG/ML Plasma/Serum Blood Alcohol 3.7 <10 mg/dL The patient's CBC is within normal limits The chemistry panel is within normal limits The salicylate level, acetaminophen level and alcohol level are negative The patient's son has arrived to the emergency department's The patient is being discharged and will follow up with the primary care doctor The patient will return to the emergency department's condition worsens. The patient is currently on hospice The patient would like to be discharged as well. Time of 1ST Reevaluation: 14:56 Reevaluation 1ST: Unchanged Time of 2ND Reevaluation: 17:29 Reevaluation 2ND: Improved Patient Education/Counseling: Diagnosis, Treatment, Prognosis, Need For Follow Up Family Education/Counseling: Diagnosis, Treatment, Prognosis, Need For Follow Up SEPSIS Sepsis Screen Physician Orders Drug Screen (04/07/25 14:49) Urinalysis (04/07/25 14:49) Charging Board Operator (04/07/25 14:49) Blood Pressure (04/07/25 14:49) Pulse Oximetry (04/07/25 14:49) Heplock Iv (04/07/25 14:49) Electrocardigram (04/07/25 14:49) Head Without Contrast (04/07/25 14:49) Vital Signs Date Time Temp Pulse Resp B/P (MAP) Pulse Ox O2 Delivery O2 Flow Rate FiO2 04/07/25 15:14 Nasal Cannula* 2 28 04/07/25 15:13 72 15 107/68 (81) 98 04/07/25 14:56 82 04/07/25 14:47 98.0 81 18 121/76 (91) 100 98.0 04/07/25 14:45 82 Laboratory Tests Test 04/07/25 15:14 White Blood Count 3.3 10^3/uL (4.4-10.8) L Departure 1 Departure Time of Disposition: 17:28 Impression: Primary Impression: Generalized weakness Additional Impression: Accidental overdose Qualified Codes: T50.901A - Poisoning by unspecified drugs, medicaments and biological substances, accidental (unintentional), initial encounter Disposition: 01 HOME / SELF CARE / HOMELESS Condition: Fair Discharged With: Self, Relative Critical Care Note Critical Care Time?: No Stability Stability form required: No Heart Score Heart Score: Heart Score Response (Comments) Value History Moderate Suspicious 1 EKG Normal 0 Age 45-64 1 Risk Factors 1 or 2 risk factors 1 Troponin Normal limit 0 Total 3 I personally scribed for SHADY ANN MD ([email or web address]) on 04/07/25 at 14:56. Electronically submitted by Audra Doshi ([email or web address]). I personally scribed for SHADY ANN MD ([email or web address]) on 04/07/25 at 15:30. Electronically submitted by Audra Doshi ([email or web address]). SHADY ANN MD Apr 07, 2025 14:56
[2025-04-07 15:13] VITALS: BP 107/68; PULSE 72; RESP 15; O2SAT 98
[2025-04-07 15:33] LABS: Hematocrit 32.8 % (36.0-46.0); Hemoglobin 11.0 g/dL (12.2-16.2); Mean Corpuscular Hemoglobin 31.4 pg (28.0-32.0); Mean Corpuscular Volume 93.6 fL (80.0-100.0); Nucleated Red Blood Cells % 0.1 %
[2025-04-07 15:39] LABS: Potassium 3.7 mmol/L (3.5-5.1); Sodium 143 mmol/L (136-145)
[2025-04-07 15:40] LABS: Calcium 9.2 mg/dL (8.7-10.4)
[2025-04-07 15:42] LABS: Chloride 109 mmol/L (98-107)
[2025-04-07 15:45] LABS: BUN/Creatinine Ratio 25.0 (10.0-20.0); Blood Urea Nitrogen 14 mg/dL (9-23); Glucose 79 mg/dL (74-106)
[2025-04-07 15:51] LABS: Acetaminophen < 2.0 UG/ML (10.0-20.0); Salicylate < 3.0 mg/dL (-30)
--- NOTE | 2025-04-07 16:02 | DVH ---
CT brain without contrast CLINICAL INDICATION: aloc FINDINGS: The study was performed in a multidetector scanner. This study performed taking axial image s from the skull base up to the vertex. Both brain and bone windows are photographed. Dose lowering techniques have been used including automated exposure control and adjustment of mA and /or KV according to patient size. No intraparenchymal hemorrhage or edema. There is encephalomalacia in the right frontal lobe. There is no hydrocephalus or midline shift. No extra-axial fluid collections On bone windows no fractures. Visualized portions of the orbits and paranasal sinuses unremarkable. IMPRESSION: 1. No acute intracranial pathology. Old area of encephalomalacia in the right frontal lobe Computed Tomographic Radiation Dosimetry Report: Total CTDI vol = 57 mGy Total DLP = 1129 mGy-cm All CT scans at this medical facility are performed using dose modulation techniques as appropriate to a performed exam including the following: Automated exposure control was utilized; adjustment of the MA and/or KvP according to patient size; and use of iterative reconstruction technique.
[2025-04-07 16:27] LABS: Anion Gap 5 (5-15); Carbon Dioxide 29 mmol/L (20-31)
--- NOTE | 2025-04-08 08:50 | ECG ---
[facility] Test Date: 2025-04-07 Test Time: 14:45:04 Pat Name: RANCHO PERDOMO Department: ER Room: Gender: F Expanded Duty Dental Assistant: ROMIE : 1960 Requested By: SHADY ANN Order Number: [id number] Reading MD: Measurements Intervals Warren Rate: 82 P: 53 IN: 135 QRS: 21 QRSD: 80 T: 67 QT: 375 QTc: 438 Interpretive Statements Sinus rhythm Abnormal R-wave progression, early transition Please click the below link to view image of tracing.
== END 2025-04-07 18:09 | disposition home or self-care (01) ==
LOC: ER 14:42 → EDBD 14:42 → EDUNIT# 14:42 → ER 18:09
DX: R53.1 Weakness (principal); T50.901A Poisoning by unspecified drugs, medicaments and biological substances, accidental (unintentional), initial encounter; R42 Dizziness and giddiness; F41.9 Anxiety disorder, unspecified; Z90.49 Acquired absence of other specified parts of digestive tract; Z88.1 Allergy status to other antibiotic agents; Z86.73 Personal history of transient ischemic attack (TIA), and cerebral infarction without residual deficits; Z79.899 Other long term (current) drug therapy; Y92.89 Other specified places as the place of occurrence of the external cause
CPT/HCPCS: 36415; 70450; 80048; 80320; 80329; 85025; 93005

== ENCOUNTER 2025-05-14 04:16 | Emergency (ER) | payer OTHER ==
[~2025-05-14] VITALS: Ht 167.6 cm; Wt 68.2 kg
--- NOTE | 2025-05-14 04:58 | ED.PDOC ---
History of Present Illness HPI Comments 64 year old female presents to the ED via EMS with a chief compliant of overdose onset today. Patient states she believed she took too much of her pain medication, administered Narcan to herself, believes she took too much Narcan. She states she is experiencing generalized body pain, is requesting pain medic ation. PMHx CVA, anxiety. Denies nausea, vomiting, diarrhea, abdominal pain, chest pain, dizziness, blurry vision, fever, chills. No other symptoms or modifying factors present at this time. Chief Complaint: Overdose Time Seen by MD: 04:50 Primary Care Provider: UNKNOWN Reviewed Notes: Medications, Allergies Allergies: Coded Allergies: Vancomycin (Verified Allergy, Severe, 01/27/25) Azithromycin (Verified Allergy, Unknown, 05/14/25) Home Meds Active Scripts Cholestyramine (QUESTRAN POWDER) 4 Gm Pw, 4 GM PO BIDBRS PRN, #10 POW As needed for loose stool/diarrhea Prov:IVETTE URIAS MD 01/28/25 Clonazepam (Klonopin) 0.5 Mg Tab, 1 TAB PO BID PRN, #7 TAB 1 Refill Prov:IVETTE URIAS MD 01/28/25 Fluoxetine Hcl (Fluoxetine Hcl) 40 Mg Cap, 1 CAP PO QAM, #30 CAP Prov:IVETTE URIAS MD 01/28/25 Information Source: Patient, Emergency Med Personnel Mode of Arrival: EMS Severity: Moderate Timing: Hours Duration: Since onset Prehospital treatment: None Past Medical History PAST MEDICAL HISTORY: Anxiety, CVA Surgical History: Cholecystectomy HIGH LIGHTER History: Denies all HIGH LIGHTER Hx Family History Family History: Reviewed,noncontributory to illness Social History Smoker: Non-Smoker Alcohol: Denies ETOH Use Drugs: Denies Drug Use Lives In: Home Constitutional: reports: others (generalized body pain); denies: chills, diaphoresis, fatigue, fever, malaise, sweats, weakness EENTM: denies: blurred vision, double vision, ear bleeding, ear discharge, ear drainage, ear pain, ear ringing, eye pain, eye redness, hearing loss, mouth pain, mouth swelling, nasal discharge, nose bleeding, nose congestion, nose pain, photophobia, tearing, throat pain, throat swelling, voice changes, others Respiratory: denies: cough, hemoptysis, orthopnea, SOB at rest, shortness of breath, SOB with excertion, stridor, wheezing, others Cardiovascular: denies: chest pain, dizzy spells, diaphoresis, Dyspnea on exertion, edema, irregular heart beat, left arm pain, lightheadedness, palpitations, PND, syncope, others Gastrointestinal: denies: abdomen distended, abdominal pain, blood streaked bowels, constipated, diarrhea, dysphagia, difficulty swallowing, hematemesis, melena, nausea, poor appetite, poor fluid intake, rectal bleeding, rectal pain, vomiting, others Genitourinary: denies: abnormal vagina bleeding, burning, dyspareunia, dysuria, flank pain, frequency, hematuria, incontinence, pain, , vagina discharge, urgency, others Neurological: denies: dizziness, fainting, headache, left sided numbness, left sided weakness, numbness, paresthesia, pre-existing deficit, right sided numbness, right sided weakness, seizure, speech problems, tingling, tremors, weakness, others Musculoskeletal: denies: back pain, gout, joint pain, joint swelling, muscle pain, muscle stiffness, neck pain, others Integumetry: denies: bruises, change in color, change in hair/nails, dryness, laceration, lesions, lumps, rash, wounds, others Allergic/Immunocompromised: denies: Difficulty Healing, Frequent Infections, Hives, Itching, others Hematologic/Lymphatic: denies: anemia, blood clots, easy bleeding, easy bruising, swollen glands, others Endocrine: denies: excessive hunger, excessive sweating, excessive thirst, excessive urination, flushing, intolerance to cold, intolerance to heat, unexplained weight gain, unexplained weight loss, others Psychiatric: denies: anxiety, bipolar disorder, depression, hopeless, panic disorder, schizophrenia, sleepless, suicidal, others All Other Systems: Reviewed and Negative Physical Exam General Appearance: Normal HEENT: Normal ENT Inspection, Pharynx Normal, TMs Normal Neck: Full Range of Motion, Non-Tender, Normal, Normal Inspection Respiratory: Chest Non-Tender, Lungs Clear, No Accessory Muscle Use, No Respiratory Distress, Normal Breath Sounds Cardiovascular: No Edema, No JVD, No Murmur, No Gallop, Normal Peripheral Pulses, Regular Rate/Rhythm Breast Exam: Deferred Gastrointestinal: No Organomegaly, Non Tender, No Pulsatile Mass, Normal Bowel Sounds, Soft Genitalia: Deferred Pelvic: Deferred Rectal: Deferred Extremities: No calf tenderness, Normal capillary refill, Normal inspection, Normal range of motion, Non-tender, No pedal edema Musculoskeletal : Apperance: Normal Neurologic: Alert, house piping inspector II-XII nml as Tested, No Motor Deficits, Normal Affect, Normal Mood, No Sensory Deficits Cerebellar Function: Normal Reflexes: Normal Skin: Dry, Normal Color, Warm Lymphatic: No Adenopathy Was a procedure done? Was a procedure done?: No Differential Dx Considerations may include: Differential diagnosis includes but not limited to drug overdose, metabolic encephalopathy, encephalitis, sepsis, dehydration and others X-Ray, Labs, Meds, VS Vital Signs Date Time Temp Pulse Resp B/P (MAP) Pulse Ox O2 Delivery O2 Flow Rate FiO2 05/14/25 05:39 86 18 133/76 05/14/25 05:27 86 18 99 Room Air* 0 21 05/14/25 05:27 98.9 86 18 133/74 (93) 96 98.9 05/14/25 04:20 98.1 91 18 163/111 97 98.1 Lab Test 05/14/25 05:35 Range/Units White Blood Count 5.4 4.4-10.8 10^3/uL Red Blood Count 4.36 4.0-5.20 10^6/uL Hemoglobin 13.7 12.2-16.2 g/dL Hematocrit 41.1 36.0-46.0 % Mean Corpuscular Volume 94.3 80.0-100.0 fL Mean Corpuscular Hemoglobin 31.5 28.0-32.0 pg Mean Corpuscular Hemoglobin Concent 33.4 32.0-36.0 g/dL Red Cell Distribution Width 13.6 11.8-14.3 % Platelet Count 191 140-450 10^3/uL Mean Platelet Volume 8.5 6.9-10.8 fL Neutrophils (%) (Auto) 80.9 H 37.0-80.0 % Lymphocytes (%) (Auto) 10.7 10.0-50.0 % Monocytes (%) (Auto) 6.7 0.0-12.0 % Eosinophils (%) (Auto) 1.2 0.0-7.0 % Basophils (%) (Auto) 0.5 0.0-2.0 % Neutrophils # (Auto) 4.3 1.6-8.6 10 ^3/uL Lymphocytes # (Auto) 0.6 0.4-5.4 10 ^3/uL Monocytes # (Auto) 0.4 0-1.3 10 ^3/uL Eosinophils # (Auto) 0.1 0-0.8 10 ^3/uL Basophils # (Auto) 0 0-0.2 10 ^3/uL Nucleated Red Blood Cells 0.1 % Sodium Level Pending Potassium Level Pending Chloride Level Pending Carbon Dioxide Level Pending Anion Gap Pending Blood Urea Nitrogen Pending Creatinine Pending Glomerular Filtration Rate Calc Pending BUN/Creatinine Ratio Pending Serum Glucose Pending Calcium Level Pending Magnesium Level Pending Total Bilirubin Pending Aspartate Amino Transferase (AST) Pending Alanine Aminotransferase (ALT) Pending Alkaline Phosphatase Pending Total Protein Pending Albumin Pending Current Medications Medications (Trade) Dose Ordered Sig/Debi Route Start Time Stop Time Status Last Admin Hydromorphone HCl (Dilaudid Injection) 1 mg ONCE ONCE IV 05/14/25 05:00 05/14/25 05:01 DC 05/14/25 05:39 Ondansetron HCl (Zofran) 4 mg ONCE ONCE IV 05/14/25 05:00 05/14/25 05:01 DC 05/14/25 05:39 Time of 1ST Reevaluation: 05:20 Reevaluation 1ST: Unchanged Patient Education/Counseling: Diagnosis, Treatment, Prognosis Family Education/Counseling: No Family Present SEPSIS Sepsis Screen Date sepsis recognized/suspect: May 14, 2025 Time Sepsis recognized/suspect: 419 Recent Procedure: No On Antibiotic Therapy: No Respiratory Rate >20: No Heart Rate >90: Yes Temp<36 C (96.8 F) or >38.3 C: No SBP <90 or MAP <65 mmHG: No New Acute Mental Status Change: No Is the patient on CPAP, BIPAP,: No Physician Orders Comprehensive Metabolic Panel (05/14/25 04:56) Chest Portable (05/14/25 04:56) Heplock Iv (05/14/25 04:56) Magnesium (05/14/25 04:56) Hydrocodone-Acet 10/325mg Tab ([place] 10/ (05/14/25 06:15) Vital Signs Date Time Temp Pulse Resp B/P (MAP) Pulse Ox O2 Delivery O2 Flow Rate FiO2 05/14/25 05:39 86 18 133/76 05/14/25 05:27 86 18 99 Room Air* 0 21 05/14/25 05:27 98.9 86 18 133/74 (93) 96 98.9 05/14/25 04:20 98.1 91 18 163/111 97 98.1 Laboratory Tests Test 05/14/25 05:35 White Blood Count 5.4 10^3/uL (4.4-10.8) Medications Medications Dose Ordered Sig/Debi Route Start Time Stop Time Status Last Admin Dose Admin Hydromorphone HCl 1 mg ONCE ONCE IV 05/14/25 05:00 05/14/25 05:01 DC 05/14/25 05:39 Ondansetron HCl 4 mg ONCE ONCE IV 05/14/25 05:00 05/14/25 05:01 DC 05/14/25 05:39 Departure 1 Departure Time of Disposition: 06:11 Impression: Primary Impression: Adverse drug reaction Additional Impression: Chronic pain Disposition: 01 HOME / SELF CARE / HOMELESS Condition: Stable Discharged With: Self, Relative Critical Care Note Critical Care Time?: No Stability Stability form required: No I personally scribed for BIANCA CANTU MD ([email or web address]) on 05/14/25 at 04:58. Electronically submitted by Nikki Riojas ([email or web address]). BIANCA CANTU MD May 14, 2025 04:58
[2025-05-14 05:27] VITALS: PULSE 86; RESP 18; O2SAT 99
[2025-05-14] MEDS: ONDANSETRON HCL 4 MG/2 ML VIAL IV ONE (05:39)
[2025-05-14] MEDS: HYDROmorphone HCL 2 MG/ML VL/or syr IV ONE (05:39)
[2025-05-14 06:00] LABS: Hematocrit 41.1 % (36.0-46.0); Hemoglobin 13.7 g/dL (12.2-16.2); Mean Corpuscular Hemoglobin 31.5 pg (28.0-32.0); Mean Corpuscular Volume 94.3 fL (80.0-100.0); Nucleated Red Blood Cells % 0.1 %
[2025-05-14] MEDS: HYDROcodone-ACET 10/325MG TAB PO ONE (06:13)
[2025-05-14 06:18] VITALS: BP 136/82; PULSE 86; RESP 18; TEMP 98.9; O2SAT 96
[2025-05-14 06:18] LABS: Alanine Aminotransferase 25 U/L (7-40); Albumin 4.8 g/dL (3.2-4.8); Anion Gap 12 (5-15); BUN/Creatinine Ratio 17.2 (10.0-20.0); Bilirubin, Total 0.5 mg/dL (0.2-1.0); Blood Urea Nitrogen 11 mg/dL (9-23); Calcium 9.5 mg/dL (8.7-10.4); Carbon Dioxide 25 mmol/L (20-31); Chloride 104 mmol/L (98-107); Glucose 95 mg/dL (74-106); Magnesium 2.2 mg/dL (1.6-2.6); Sodium 141 mmol/L (136-145); Total Protein 6.9 g/dL (5.7-8.2)
--- NOTE | 2025-05-14 06:22 | DVH ---
CHEST RADIOGRAPH Indication: sob Technique: Single frontal view of the chest was obtained COMPARISON: None FINDINGS: Lines and Tubes: None Lungs: Clear Pleura: No effusion. No pneumothorax. Cardiomediastinal contours: Unremarkable Bones: Unremarkable IMPRESSION: 1. No acute disease.
[2025-05-14 06:45] LABS: Alkaline Phosphatase 161 U/L (46-116); Potassium 3.2 mmol/L (3.5-5.1)
== END 2025-05-14 06:27 | disposition home or self-care (01) ==
LOC: EDBD 04:16 → ER 04:21
DX: G89.29 Other chronic pain (principal); T50.7X5A Adverse effect of analeptics and opioid receptor antagonists, initial encounter; Z90.49 Acquired absence of other specified parts of digestive tract; Z88.1 Allergy status to other antibiotic agents; Z79.899 Other long term (current) drug therapy; Y92.89 Other specified places as the place of occurrence of the external cause
CPT/HCPCS: 36415; 71045; 80053; 83735; 85025; 96374; 96375; 99284; J1171; J2405

== ENCOUNTER 2025-06-04 13:08 | Inpatient (IN) | payer OTHER, MEDICAID ==
[~2025-06-04] VITALS: Ht 160 cm; Wt 62.6 kg
[2025-06-04 13:30] VITALS: PULSE 56; RESP 23; O2SAT 98
--- NOTE | 2025-06-04 13:39 | ED.PDOC ---
GI ASSESSMENT HPI Comments This is a 64 year old female ALLEN presenting to the ED with chief complaint of GI bleeding. EMS reports that the patient was being examined by her hospice doctor an hour ago, however, when taking the patient to the bathroom, patient had blood present in the toilet bowl. EMS relays that patient had lost approximately 300-500ccs of blood and is now complaining of 10/10 generalized abdominal pain. EMS states patient was provided 50mcg of Fentanyl. Patient denies any N/V/D, dizziness, fever, or chills. Chief Complaint: GI Bleed Time Seen by MD: 13:37 Primary Care Provider: UNKNOWN Reviewed Notes: Nurses Notes, Pickup Driver Notes, Medications, Allergies Allergies: Coded Allergies: Vancomycin (Verified Allergy, Severe, 01/27/25) Azithromycin (Verified Allergy, Unknown, 05/14/25) Home Meds Active Scripts Cholestyramine (QUESTRAN POWDER) 4 Gm Pw, 4 GM PO BIDBRS PRN, #10 POW As needed for loose stool/diarrhea Prov:IVETTE URIAS MD 01/28/25 Clonazepam (Klonopin) 0.5 Mg Tab, 1 TAB PO BID PRN, #7 TAB 1 Refill Prov:IVETTE URIAS MD 01/28/25 Fluoxetine Hcl (Fluoxetine Hcl) 40 Mg Cap, 1 CAP PO QAM, #30 CAP Prov:IVETTE URIAS MD 01/28/25 Information Source: Patient, Emergency Med Personnel Mode of Arrival: EMS Timing: Hours Duration: Since onset Prehospital treatment: None Quality: Sharp Vomitus: None Stool: Blood Streaked Severity: Moderate Recent: None Recent Hx of: None Pain Location: Diffuse Modifying Factors: Nothing Associated sign and symptoms: Abdominal Pain, Blood in Stool Past Medical History PAST MEDICAL HISTORY: Anxiety, CVA Surgical History: Cholecystectomy DESIGN TECHNOLOGY PROFESSOR History: Denies all DESIGN TECHNOLOGY PROFESSOR Hx Family History Family History: Reviewed,noncontributory to illness Social History Smoker: Non-Smoker Alcohol: Denies ETOH Use Drugs: Denies Drug Use Lives In: Home Constitutional: denies: chills, diaphoresis, fatigue, fever, malaise, sweats, weakness, others EENTM: denies: blurred vision, double vision, ear bleeding, ear discharge, ear drainage, ear pain, ear ringing, eye pain, eye redness, hearing loss, mouth pain, mouth swelling, nasal discharge, nose bleeding, nose congestion, nose pain, photophobia, tearing, throat pain, throat swelling, voice changes, others Respiratory: denies: cough, hemoptysis, orthopnea, SOB at rest, shortness of breath, SOB with excertion, stridor, wheezing, others Cardiovascular: denies: chest pain, dizzy spells, diaphoresis, Dyspnea on exertion, edema, irregular heart beat, left arm pain, lightheadedness, palpita tions, PND, syncope, others Gastrointestinal: reports: abdominal pain, blood streaked bowels, rectal bleeding; denies: abdomen distended, constipated, diarrhea, dysphagia, difficulty swallowing, hematemesis, melena, nausea, poor appetite, poor fluid intake, rectal pain, vomiting, others Genitourinary: denies: abnormal vagina bleeding, burning, dyspareunia, dysuria, flank pain, frequency, hematuria, incontinence, pain, , vagina discharge, urgency, others Neurological: denies: dizziness, fainting, headache, left sided numbness, left sided weakness, numbness, paresthesia, pre-existing deficit, right sided numbness, right sided weakness, seizure, speech problems, tingling, tremors, weakness, others Musculoskeletal: denies: back pain, gout, joint pain, joint swelling, muscle pain, muscle stiffness, neck pain, others Integumetry: denies: bruises, change in color, change in hair/nails, dryness, laceration, lesions, lumps, rash, wounds, others Allergic/Immunocompromised: denies: Difficulty Healing, Frequent Infections, Hives, Itching, others Hematologic/Lymphatic: denies: anemia, blood clots, easy bleeding, easy bruising, swollen glands, others Endocrine: denies: excessive hunger, excessive sweating, excessive thirst, excessive urination, flushing, intolerance to cold, intolerance to heat, unexplained weight gain, unexplained weight loss, others Psychiatric: denies: anxiety, bipolar disorder, depression, hopeless, panic disorder, schizophrenia, sleepless, suicidal, others All Other Systems: Reviewed and Negative Physical Exam General Appearance: Moderate Distress, Normal HEENT: Normal ENT Inspection, Pharynx Normal, TMs Normal Neck: Full Range of Motion, Non-Tender, Normal, Normal Inspection Respiratory: Chest Non-Tender, Lungs Clear, No Accessory Muscle Use, No Respiratory Distress, Normal Breath Sounds Cardiovascular: Bradycardia, No Edema, No JVD, No Murmur, No Gallop, Normal Peripheral Pulses Breast Exam: Deferred Gastrointestinal: No Organomegaly, Non Tender, No Pulsatile Mass, Normal Bowel Sounds, Soft Genitalia: Deferred Pelvic: Deferred Rectal: Deferred Extremities: No calf tenderness, Normal capillary refill, Non-tender, No pedal edema Musculoskeletal : Apperance: Normal Neurologic: Alert, soil surveyor II-XII nml as Tested, No Motor Deficits, Normal Affect, Normal Mood, No Sensory Deficits Cerebellar Function: NOT DONE Reflexes: NOT DONE Skin: Dry, Normal Color, Warm Peripheral Pulses: 3+ Radial (R), 3+ Radial (L) Lymphatic: No Adenopathy Was a procedure done? Was a procedure done?: No GI differential Dx Differential Diagnosis: Constipation, Diverticular disease, Esophagitis, Gastritis/PUD, Gastroenteritis X-Ray, Labs, Meds, VS Vital Signs Date Time Temp Pulse Resp B/P (MAP) Pulse Ox O2 Delivery O2 Flow Rate FiO2 06/04/25 13:16 97.2 55 18 147/87 90 97.2 Patient alert. Came in because of bright red blood per rectum. Called in by a nurse that takes care of her. Vitals stable. She continues to bleed. Establish intravenous access. Was given fluids Was given Protonix. Continue monitoring. Time of 1ST Reevaluation: 14:37 Reevaluation 1ST: Unchanged Patient Education/Counseling: Diagnosis, Treatment Family Education/Counseling: No Family Present SEPSIS Sepsis Screen Date sepsis recognized/suspect: Jun 04, 2025 Time Sepsis recognized/suspect: 1315 Recent Procedure: No On Antibiotic Therapy: No Respiratory Rate >20: No Heart Rate >90: No Temp<36 C (96.8 F) or >38.3 C: No SBP <90 or MAP <65 mmHG: No New Acute Mental Status Change: No Is the patient on CPAP, BIPAP,: No Physician Orders Troponin-I Hs (06/04/25 13:48) Complete Blood Count (06/04/25 13:48) Comprehensive Metabolic Panel (06/04/25 13:48) Chest Portable (06/04/25 13:48) Urinalysis (06/04/25 13:48) 1 Liter Bolus Of 0.9% Ns (06/04/25 14:00) 0.9% Ns 30mls/Kg (06/04/25 14:00) Type And Screen (06/04/25 13:48) Vital Signs Date Time Temp Pulse Resp B/P (MAP) Pulse Ox O2 Delivery O2 Flow Rate FiO2 06/04/25 13:16 97.2 55 18 147/87 90 97.2 Departure 1 Departure Time of Disposition: 13:51 Impression: Primary Impression: GI bleed Qualified Codes: K92.2 - Gastrointestinal hemorrhage, unspecified Disposition: ADMITTED INPATIENT Admit to: Med Surg Condition: Guarded Critical Care Note Critical Care Time?: Yes (90 min-critical care time only) Stability Stability form required: No Heart Score Heart Score: Heart Score Response (Comments) Value History N/A 0 EKG N/A 0 Age N/A 0 Risk Factors N/A 0 Troponin N/A 0 Total 0 I personally scribed for MANAN SCHILLING MD ([email or web address]) on 06/04/25 at 13:39. Electronically submitted by Luis Manuel Sharif ([email or web address]). MANAN SCHILLING MD Jun 04, 2025 13:39
[2025-06-04] MEDS: ONDANSETRON HCL 4 MG/2 ML VIAL IV ONE (14:04)
[2025-06-04] MEDS: MORPHINE SULFATE 4 MG/ML SYR/VIAL IV ONE (14:05)
[2025-06-04] MEDS: PANTOPRAZOLE 40 MG/10 ML VIAL INJ IV ONE (14:16)
[2025-06-04] MEDS: SODIUM CHLORIDE 0.9% 1,000 ML IV ONE ×2 (14:17→18:00)
--- NOTE | 2025-06-04 14:29 | DVH ---
INDICATION: sob TECHNIQUE: Frontal view of the chest. COMPARISON: XY CHEST PORTABLE on DOS: 05/14/25 FINDINGS: . The heart and mediastinal contours are grossly unremarkable. There is no evidence of pleural disea se. The lungs are clear. The bony structures of the chest are intact without fracture. IMPRESSION: 1. No evidence of acute disease.
[2025-06-04 14:30] LABS: Hematocrit 41.9 % (36.0-46.0); Hemoglobin 14.2 g/dL (12.2-16.2); Mean Corpuscular Hemoglobin 31.8 pg (28.0-32.0); Mean Corpuscular Volume 93.5 fL (80.0-100.0); Nucleated Red Blood Cells % 0.2 %
[2025-06-04] MEDS: HYDROmorphone HCL 2 MG/ML VL/or syr IV ONE ×2 (14:45→17:14)
[2025-06-04 14:48] LABS: Alanine Aminotransferase 16 U/L (7-40); Albumin 4.1 g/dL (3.2-4.8); Alkaline Phosphatase 148 U/L (46-116); Anion Gap 12 (5-15); BUN/Creatinine Ratio 9.4 (10.0-20.0); Bilirubin, Total 0.3 mg/dL (0.2-1.0); Blood Urea Nitrogen < 5 mg/dL (9-23); Calcium 9.2 mg/dL (8.7-10.4); Carbon Dioxide 23 mmol/L (20-31); Chloride 106 mmol/L (98-107); Glucose 160 mg/dL (74-106); Potassium 2.8 mmol/L (3.5-5.1); Sodium 141 mmol/L (136-145); Total Protein 6.4 g/dL (5.7-8.2)
[2025-06-04 19:30] VITALS: PULSE 69; RESP 22; O2SAT 94
[2025-06-04] MEDS ORDERED: NITROGLYCERIN 0.4 MG SL TAB SL PRN (20:30)
[2025-06-04] MEDS ORDERED: MORPHINE SULFATE INJ 2 MG/ml SYRG IV PRN (20:30)
[2025-06-04] MEDS: POTASSIUM EFFERVESENT TAB 25 MEQ PO ONE (20:57)
--- NOTE | 2025-06-04 21:03 | DVH ---
Exam: CT CT AB PEL WO CON-NO ORAL OR IV History: ABD PAIN Comparison Study: CT CT AB PEL WO CON-NO ORAL OR IV on DOS: 01/27/25 TECHNIQUE: Multidetector CT of the abdomen and pelvis was performed from lung bases to pubic symphysi s. Imaging was performed without IV contrast. Axial, coronal, and sagittal multiplanar reformats were obtained from the axial data set by the technologist. RADIATION DOSE: CTDI vol 7.86 mGy. DLP 426.28 mGy.cm Findings: Limited evaluation of the solid organs in the absence of IV contrast. Lungs: Minimal basilar atelectasis. Bilateral breast implants. Liver: Unremarkable. Spleen: There is perisplenic ascites. Pancreas: Unremarkable. Gallbladder: Prior cholecystectomy. Adrenals: Not well assessed. Kidneys: Unremarkable. Pelvic Viscera: Unremarkable. Vasculature: Unremarkable. Retroperitoneum: Unremarkable. Bowel: The bowel is suboptimally assessed. There is suggestion of wall thickening involving the desc ending colon. Proximal to this region, there is an intussusception involving the length of probable transverse colon. Anastomotic sutures are seen within the bowel in the left upper quadrant. Musculoskeletal: Unremarkable. Soft tissues: Unremarkable Impression: 1. Findings as above suggesting colocolic intussusception with suboptimally assessed wall thickening of the descending colon. Underlying neoplasm cannot be excluded. 2. Small perisplenic ascites. 3. Additional findings as detailed.
[2025-06-04] MEDS: fentaNYL CITRATE 100 MCG/2 ML VL IV ONE (23:02)
[2025-06-04] MEDS: PIPERACILLIN-TAZOB 3.375GM 100 ML IV SCH (23:42)
--- NOTE | 2025-06-04 23:42 | DVHHP2 ---
Admitting Diagnosis: GI Bleed, Colocolic Intussusception, abdominal pain History of Present Illness History Source: Patient Exam Limitations: No limitations HPI Mrs. Amber Kendrick is a 64 year old female with a history of small bowel obstructions with surgical procedures, Anxiety, CVA, Cholecystectomy, who presents with a chief complaint of GI bleeding. Patient reports rectal bleeding with associated 10/10 generalized abdominal pain. EMS states . Patient denies any N/V/D, dizziness, fever. Patient CT abdomen and pelvis resulted : 1. Findings as above suggesting colocolic intussusception with suboptimally assessed wall thickening of the descending colon. Underlying neoplasm cannot be excluded. 2. Small perisplenic ascites. 3. Additional findings as detailed. Dr. Hidalgo ED physician spoke with general surgeon customer acquisition specialist Dr. Rizo , general surgeon will see patient and consult. Patient admitted for further evaluation and treatment. Home Meds Active Scripts Cholestyramine (QUESTRAN POWDER) 4 Gm Pw, 4 GM PO BIDBRS PRN, #10 POW As needed for loose stool/diarrhea Prov:IVETTE URIAS MD 01/28/25 Clonazepam (Klonopin) 0.5 Mg Tab, 1 TAB PO BID PRN, #7 TAB 1 Refill Prov:IVETTE URIAS MD 01/28/25 Fluoxetine Hcl (Fluoxetine Hcl) 40 Mg Cap, 1 CAP PO QAM, #30 CAP Prov:IVETTE URIAS MD 01/28/25 Past Medical History Cardiac: No pertinent Hx Pulmonary: No pertinent Hx Central Nervous System: CVA GI: Other (small bowel obstruction with surgical procedures) Hemotology/Oncology: No pertinent Hx Hepatobiliary: No pertinent Hx Psychiatric: Anxiety Musculoskeletal: No pertinent Hx Rheumotologic: No pertinent Hx Infectious Disease: No peritnent Hx ENT: No pertinent Hx Renal/: No pertinent Hx Endocrine: No pertinent Hx Dermatology: No pertinent Hx Past Surgical History: Cholecystectomy Smoker: No Hx (Negative) Alocohol: None Drugs: None Lives with: With family Domestic Violence: Neg Review of Systems Constitutional: No symptom reported Ears, Nose, & Throat: No symptom reported Eyes: No symptom reported Pulmonary/Respiratory: No symptom reported Cardiovascular: No symptom reported Gastrointestinal: Abdominal Pain, Other (gi bleed) Genitourinary: No symptom reported Musculoskeletal: No symptom reported Skin: No symptom reported Psychiatric: No symptom reported Endocrine: No symptom reported Hemotologic/Lymphatic: No symptom reported H&P Exam Vital Signs Vital Signs Date Time Temp Pulse Resp B/P (MAP) Pulse Ox O2 Delivery O2 Flow Rate FiO2 06/04/25 23:02 152/76 06/04/25 21:22 72 19 95 06/04/25 19:30 97.9 97.9 06/04/25 19:30 Room Air* 0 21 General Appeara: Thin, Other (ill appearing) Head Exam: Normal inspection Neck Exam: Normal inspection, Non-tender, Normal alignment Eye Exam: bilateral eye Normal inspection, bilateral eye PERRL, bilateral eye EOMI Ear Exam: bilateral ear Auricle normal Nasal Exam: Normal inspection Mouth: Normal Inspection Pulmonary/Respiratory: Normal inspection, Normal breath sounds, Chest non- tender, Lungs clear Cardiovascular/Chest: Normal inspection, Regular rate, Normal Rhythm Peripheral Pulses: 2+ dorsalis pedis (R), 2+ dorsalis pedis (L), 2+ Radial (R), 2+ Radial (L) Abdominal Exam: Soft, Other (underlying neoplasm per CT abdomen and pelvis) 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: Normal hearing, Normal speech, PERRL Neuro/Mental St: Alert, Oriented Appearance: Appropriate appearance, Appropriate insight Eye contact/ Speech: Cooperative, Good eye contact, Normal speech Thoughts/Psych: Normal thought pattern Skin Exam: Normal inspection, Warm/dry, Pallor SEPSIS Sepsis Screen Date sepsis recognized/suspect: Jun 04, 2025 Time Sepsis recognized/suspect: 1929 Recent Procedure: No On Antibiotic Therapy: No Respiratory Rate >20: Yes Heart Rate >90: No Temp<36 C (96.8 F) or >38.3 C: No SBP <90 or MAP <65 mmHG: No New Acute Mental Status Change: No Is the patient on CPAP, BIPAP,: No Physician Orders Ct Ab Pel Wo Con-No Oral Or Iv (06/04/25 20:11) * Surgical Consult (06/04/25 ) Npo (Nothing By Mouth) Diet (06/05/25 Breakfast) Lactic Acid W/ Reflex Order (06/04/25 22:54) * Gi Dvh Electrode Turner And Finisher (06/04/25 22:54) Basic Metabolic Panel (06/05/25 05:00) Basic Metabolic Panel (06/06/25 05:00) Basic Metabolic Panel (06/07/25 05:00) Complete Blood Count (06/05/25 05:00) Complete Blood Count (06/06/25 05:00) Complete Blood Count (06/07/25 05:00) Prothrombin Time W/ Inr (06/04/25 22:54) Hemoglobin & Hematocrit (06/05/25 00:00) Hemoglobin & Hematocrit (06/05/25 06:00) Hemoglobin & Hematocrit (06/05/25 12:00) Hemoglobin & Hematocrit (06/05/25 18:00) Hemoglobin & Hematocrit (06/06/25 00:00) Hemoglobin & Hematocrit (06/06/25 06:00) Morphine Sulfate Injection (06/04/25 23:00) Ondansetron Hcl (Zofran) (06/04/25 23:00) Sodium Chloride 0.9% (06/04/25 23:00) Potassium (06/04/25 23:12) Magnesium (06/04/25 23:12) Admit (06/04/25 23:18) Stat Ekg For Chest Pain (06/04/25 23:18) Notify Md Of Changes From Base (06/04/25 23:18) Knotting Machine Operator Portable For 24 Hours (06/04/25 23:18) Emergency Dysrhythmia Protocol (06/04/25 23:18) Rhythm Strips Once Every Shift (06/04/25 23:18) Oxygen By Nasal Cannula (06/04/25 23:18) Lactic Acid W/ Reflex Order (06/05/25 04:00) Piperacillin-Tazob 3.375gm (Zosyn 3.375g (06/04/25 23:30) Pantoprazole (Protonix) (06/05/25 10:00) Sequential Compression Device (06/04/25 23:22) Urinalysis (06/04/25 23:26) Electrocardigram (06/04/25 23:26) Code Status (06/04/25 23:29) Communication Order (06/04/25 23:31) Stool Occult Blood (06/04/25 23:31) Vital Signs Date Time Temp Pulse Resp B/P (MAP) Pulse Ox O2 Delivery O2 Flow Rate FiO2 06/04/25 23:02 152/76 06/04/25 21:22 72 19 142/79 (100) 95 06/04/25 20:00 66 06/04/25 19:30 97.9 97.9 06/04/25 19:30 69 22 94 Room Air* 0 21 06/04/25 19:00 69 22 142/84 (103) 94 06/04/25 18:00 70 20 133/80 06/04/25 17:14 65 15 141/79 06/04/25 17:00 65 15 141/79 (99) 96 Laboratory Tests Test 06/04/25 14:20 White Blood Count 7.1 10^3/uL (4.4-10.8) Medications Medications Dose Ordered Sig/Debi Route Start Time Stop Time Status Last Admin Dose Admin Fentanyl Citrate 100 mcg ONCE ONCE IV 06/04/25 23:00 06/04/25 23:01 DC 06/04/25 23:02 100 MCG Hydromorphone HCl 1 mg ONCE ONCE IV 06/04/25 14:45 06/04/25 14:46 DC 06/04/25 14:45 1 MG Hydromorphone HCl 1 mg ONCE ONCE IV 06/04/25 15:15 06/04/25 15:16 DC 06/04/25 17:14 1 MG Morphine Sulfate 4 mg ONCE ONCE IV 06/04/25 13:45 06/04/25 13:46 DC 06/04/25 14:05 4 MG Ondansetron HCl 4 mg ONCE ONCE IV 06/04/25 13:45 06/04/25 13:46 DC 06/04/25 14:04 4 MG Pantoprazole Sodium 40 mg ONCE ONCE IV 06/04/25 14:00 06/04/25 14:01 DC 06/04/25 14:16 40 MG Potassium Bicarbonate 60 meq ONCE ONCE PO 06/04/25 20:15 06/04/25 20:18 DC 06/04/25 20:57 60 MEQ Sodium Chloride 1,000 ml @ 150 mls/hr Q6H40M ONCE IV 06/04/25 14:00 06/04/25 20:39 DC 06/04/25 18:00 150 MLS/HR Sodium Chloride 1,000 ml @ 1,000 mls/hr Q1H ONCE IV 06/04/25 14:00 06/04/25 14:59 DC 06/04/25 14:17 1,000 MLS/HR Labs/Xrays Labs Test 06/04/25 14:20 Range/Units White Blood Count 7.1 4.4-10.8 10^3/uL Red Blood Count 4.48 4.0-5.20 10^6/uL Hemoglobin 14.2 12.2-16.2 g/dL Hematocrit 41.9 36.0-46.0 % Mean Corpuscular Volume 93.5 80.0-100.0 fL Mean Corpuscular Hemoglobin 31.8 28.0-32.0 pg Mean Corpuscular Hemoglobin Concent 34.0 32.0-36.0 g/dL Red Cell Distribution Width 13.1 11.8-14.3 % Platelet Count 205 140-450 10^3/uL Mean Platelet Volume 8.4 6.9-10.8 fL Neutrophils (%) (Auto) 82.7 H 37.0-80.0 % Lymphocytes (%) (Auto) 13.4 10.0-50.0 % Monocytes (%) (Auto) 3.5 0.0-12.0 % Eosinophils (%) (Auto) 0.2 0.0-7.0 % Basophils (%) (Auto) 0.2 0.0-2.0 % Neutrophils # (Auto) 5.9 1.6-8.6 10 ^3/uL Lymphocytes # (Auto) 1.0 0.4-5.4 10 ^3/uL Monocytes # (Auto) 0.3 0-1.3 10 ^3/uL Eosinophils # (Auto) 0 0-0.8 10 ^3/uL Basophils # (Auto) 0 0-0.2 10 ^3/uL Nucleated Red Blood Cells 0.2 % Sodium Level 141 136-145 mmol/L Potassium Level 2.8 L 3.5-5.1 mmol/L Chloride Level 106 98-107 mmol/L Carbon Dioxide Level 23 20-31 mmol/L Anion Gap 12 5-15 Blood Urea Nitrogen < 5 L 9-23 mg/dL Creatinine 0.53 L 0.550-1.02 mg/dL Glomerular Filtration Rate Calc 105 >90 mL/min BUN/Creatinine Ratio 9.4 L 10.0-20.0 Serum Glucose 160 H 74-106 mg/dL Calcium Level 9.2 8.7-10.4 mg/dL Total Bilirubin 0.3 0.2-1.0 mg/dL Aspartate Amino Transferase (AST) 26 13-40 U/L Alanine Aminotransferase (ALT) 16 7-40 U/L Alkaline Phosphatase 148 H 46-116 U/L Troponin I High Sensitivity 4 </=34 ng/L Total Protein 6.4 5.7-8.2 g/dL Albumin 4.1 3.2-4.8 g/dL Assessment/Plan Problem List: (1) GI bleed (2) Intussusception Plan This is a 64 year old female with a history of small bowel obstructions with surgical procedures, Anxiety, CVA, Cholecystectomy who presents to the hospital with rectal bleeding and abdominal pain. Spoke with general surgeon Dr. Orozco whom recommends surgery tonight which he discussed with the patient and patient family over the phone. I spoke with the patients daughter and a rastafari member over the phone and per patient, daughter and rastafari member they refuse PRBC blood product if needed. Patient reports she will decide if she will procede with surgical intervention. Patient initially wanted to be a DNR and later changed her code status to Full Code. Patient found to have 1. GI Bleed 2. Colocolic Intussusception 3. Abdominal pain 4. Acute Hypokalemia 5. hx of SBO 6. hx of CVA Plan Admit Telemetry unit General surgeon consultation appreciated Gastroenterology consultation Strict NPO IV fluids NS IV abx Monitor electrolytes replenish as needed Serial lactic acid levels Serial H&H Stool Occult Blood GI ppx Protonix IV DVT ppx SCD's BLE Discussed all above with patient, patient daughter and a rastafari member whom verbalize agreement and understanding of care plan. All questions were answered. Discussed care plan with patient nurse Michelle GILMORE. Discussed assessment and care plan with supervising MD. Plan discussed with: Patient Code Visit Code Visit Total Time (mins): 45 DELISA MCCOY Jun 04, 2025 23:42 ANNE RHODES MD Jun 05, 2025 14:08
[2025-06-04] MEDS: SODIUM CHLORIDE 0.9% 1,000 ML IV SCH (23:43)
[2025-06-04] MEDS: MORPHINE SULFATE INJ 2 MG/ml SYRG IV PRN (23:47)
[2025-06-05] VITALS (7 sets, daily range): BP systolic 131–168; BP diastolic 69–91; PULSE 52–93; RESP 12–18; TEMP 97.6–99; O2SAT 96–99
[2025-06-05 00:02] LABS: Potassium 4.5 mmol/L (3.5-5.1)
[2025-06-05 00:09] LABS: Magnesium 2.1 mg/dL (1.6-2.6)
[2025-06-05 00:17] LABS: INR 0.97 (0.9-1.15); Prothrombin Time 10.3 sec (9.3-11.8)
[2025-06-05 00:29] LABS: Hematocrit 44.9 % (36.0-46.0); Hemoglobin 15.0 g/dL (12.2-16.2)
--- NOTE | 2025-06-05 01:17 | DVHINCON2 ---
Consultation - Surgical Date Seen: Jun 05, 2025 Referring Physician Reason for Consultation Acute intractable abdominal pain with CT showing colocolonic intussusception History of Present Illness History of Present Illness Mrs. Kendrick is a 64-year-old female who was brought to the ED today due to acute onset abdominal pain that started around 11:00 a.m. today. Patient states that she had some breakfast and then the pain developed around the 11 and she was attributing the pain to the breakfast. Soon after the pain began she went to the restroom she had a bloody bowel movement. She states that there was a lot of blood in the toilet. This happen again a 2nd time while a hospice physician was seeing her at home. The hospice physician was the one that refered her to the ED after seeing the blood in the toilet. Per EMS it was approximately 300- 500 cc of blood. Patient states she has associated nausea and not vomiting, but some spit ups. She has a history of chronic inflammatory demyelinating polyneuropathy and this is why she was on hospice. Patient states that she recently had a 30 lb weight loss and she also has had loss of appetite. States that she has had 2 episodes in the past of either bowel obstruction or intussusception that has resulted in bowel resections. Denies fevers chills or changes in urinary habits. Patient is also a [employer] and does not accept blood products. Past Medical/Surgical History Past Medical/Surgical History PMH chronic inflammatory demyelinating polyneuropathy, anxiety, depression, CVA PSH gastric bypass over 20 years ago, ex lap for intussusception x2 with bowel resection, cholecystectomy, breast augmentation, tubal ligation Family and Social History Family and Social History Denies any personal history of cancer ETOH/T Ob/drugs denies Allergies and medications Allergies: Coded Allergies: Vancomycin (Verified Allergy, Severe, 01/27/25) Azithromycin (Verified Allergy, Unknown, 05/14/25) Home Meds Active Scripts Cholestyramine (QUESTRAN POWDER) 4 Gm Pw, 4 GM PO BIDBRS PRN, #10 POW As needed for loose stool/diarrhea Prov:IVETTE URIAS MD 01/28/25 Clonazepam (Klonopin) 0.5 Mg Tab, 1 TAB PO BID PRN, #7 TAB 1 Refill Prov:IVETTE URIAS MD 01/28/25 Fluoxetine Hcl (Fluoxetine Hcl) 40 Mg Cap, 1 CAP PO QAM, #30 CAP Prov:IVETTE URIAS MD 01/28/25 Review of systems Review of Systems: HEENT:Normal, CVS:Normal, RESPIRATORY:Normal, GI:Abnormal (See HPI), :Normal, MSK:Abnormal (History of CIDP, bed-bound), NEURO:Abnormal (History of CIDP, bed-bound) Examination Vital signs Vital Signs Date Time Temp Pulse Resp B/P (MAP) Pulse Ox O2 Delivery O2 Flow Rate FiO2 06/05/25 00:00 95 06/04/25 23:47 20 152/76 06/04/25 21:22 95 06/04/25 19:30 97.9 97.9 06/04/25 19:30 Room Air* 0 21 Medications Current Medications Medications (Trade) Dose Ordered Sig/Debi Route PRN Reason Start Time Stop Time Status Last Admin Nitroglycerin (Ntrostat Sublingual) 0.4 mg Q5MINP PRN SL FOR CHEST PAIN 06/04/25 20:30 06/04/25 22:29 DC Morphine Sulfate 2 mg Q30M PRN IV FOR CHEST PAIN 06/04/25 20:30 06/04/25 22:29 DC Morphine Sulfate 2 mg Q4HPRN PRN IV SEVERE PAIN (7-10 PAIN SCALE) 06/04/25 23:00 06/04/25 23:47 Ondansetron HCl (Zofran) 4 mg Q6HPRN PRN IV NAUSEA / VOMITING 06/04/25 23:00 Sodium Chloride 1,000 ml @ 100 mls/hr Q10H IV 06/04/25 23:00 06/04/25 23:43 Piperacillin Sod/ Tazobactam Sod 100 ml @ 25 mls/hr Q8HR IV 06/04/25 23:30 06/04/25 23:42 Pantoprazole Sodium (Protonix) 40 mg DAILY IV 06/05/25 10:00 Laboratory Labs Test 06/04/25 23:38 06/04/25 14:20 Range/Units Prothrombin Time 10.3 9.3-11.8 sec Prothrombin Time INR 0.97 0.9-1.15 Potassium Level 4.5 3.5-5.1 mmol/L Lactic Acid Level 1.6 0.4-2.0 mmol/L Magnesium Level 2.1 1.6-2.6 mg/dL White Blood Count 7.1 4.4-10.8 10^3/uL Red Blood Count 4.48 4.0-5.20 10^6/uL Hemoglobin 14.2 12.2-16.2 g/dL Hematocrit 41.9 36.0-46.0 % Mean Corpuscular Volume 93.5 80.0-100.0 fL Mean Corpuscular Hemoglobin 31.8 28.0-32.0 pg Mean Corpuscular Hemoglobin Concent 34.0 32.0-36.0 g/dL Red Cell Distribution Width 13.1 11.8-14.3 % Platelet Count 205 140-450 10^3/uL Mean Platelet Volume 8.4 6.9-10.8 fL Neutrophils (%) (Auto) 82.7 H 37.0-80.0 % Lymphocytes (%) (Auto) 13.4 10.0-50.0 % Monocytes (%) (Auto) 3.5 0.0-12.0 % Eosinophils (%) (Auto) 0.2 0.0-7.0 % Basophils (%) (Auto) 0.2 0.0-2.0 % Neutrophils # (Auto) 5.9 1.6-8.6 10 ^3/uL Lymphocytes # (Auto) 1.0 0.4-5.4 10 ^3/uL Monocytes # (Auto) 0.3 0-1.3 10 ^3/uL Eosinophils # (Auto) 0 0-0.8 10 ^3/uL Basophils # (Auto) 0 0-0.2 10 ^3/uL Nucleated Red Blood Cells 0.2 % Sodium Level 141 136-145 mmol/L Chloride Level 106 98-107 mmol/L Carbon Dioxide Level 23 20-31 mmol/L Anion Gap 12 5-15 Blood Urea Nitrogen < 5 L 9-23 mg/dL Creatinine 0.53 L 0.550-1.02 mg/dL Glomerular Filtration Rate Calc 105 >90 mL/min BUN/Creatinine Ratio 9.4 L 10.0-20.0 Serum Glucose 160 H 74-106 mg/dL Calcium Level 9.2 8.7-10.4 mg/dL Total Bilirubin 0.3 0.2-1.0 mg/dL Aspartate Amino Transferase (AST) 26 13-40 U/L Alanine Aminotransferase (ALT) 16 7-40 U/L Alkaline Phosphatase 148 H 46-116 U/L Troponin I High Sensitivity 4 </=34 ng/L Total Protein 6.4 5.7-8.2 g/dL Albumin 4.1 3.2-4.8 g/dL Examination: GENERAL:Abnormal (Appears frail/deconditioned, in pain), ABD OMEN:Abnormal (Slight distention, soft, depressible, ex lap scar well healed, diffuse abdominal tenderness, no rebound, no guarding) Problem List/Assessment/Plan Problems: (1) Intussusception Assessment and Plan Mrs. Kendrick is a 64-year-old female who presented to the ED with intractable abdominal pain and blood per rectum. A CT was done and shows what it appears to be a colocolonic intussusception in the descending colon/ transverse colon, also the descending colon wall appears mass like. Also on the CT there are gastric staple lines and multiple staple lines throughout the bowel, consistent with her history of gastric bypass and previous ex laps with bowel resection. No free air seen on CT. Given this findings of likely colocolonic intussusception which caused her GI bleeding, management will be emergent surgery with bowel resection. The other option would be nonoperative management with symptom control. The above findings and management options were discussed with the patient at length and with her daughter Ngoc. Given the patient's baseline condition and all of her previous abdominal surgeries, this would not be an easy surgery and if she were to survive the surgery she would likely have a long recovery with possible extended ICU stay. All of this was communicated to the patient and daughter, all of their questions were answered. They both wanted to have a family discussion regarding the patient's condition and their decision in regards to care. I was called to the patient's bedside again after they had a family discussion. Patient and family decided to go comfort care. Primary team was notified of the patient's decision. 1. Proceed with the comfort care as per patient and family wishes 2. Please call with any questions or concerns Plan discussed with Plan discussed with: Patient, Daughter Visit Coding Surgery Date of Service if different f: Jun 05, 2025 Billing Provider: ALIN GALAN MD Surgery Visit Codes: [id number] - INP CONSULT <110 ALIN TELLEZ MD Jun 05, 2025 01:17
[2025-06-05] MEDS: HYDROmorphone HCL 2 MG/ML VL/or syr IV PRN ×3 (02:45→16:23)
[2025-06-05] MEDS: ONDANSETRON HCL 4 MG/2 ML VIAL IV PRN (03:56)
[2025-06-05] MEDS: HYDROmorphone HCL 2 MG/ML VL/or syr IV ONE (03:58)
[2025-06-05 05:09] LABS: Hematocrit 39.9 % (36.0-46.0); Hemoglobin 13.9 g/dL (12.2-16.2); Mean Corpuscular Hemoglobin 32.1 pg (28.0-32.0); Mean Corpuscular Volume 91.8 fL (80.0-100.0); Nucleated Red Blood Cells % 0.1 %
[2025-06-05 05:17] LABS: Chloride 105 mmol/L (98-107); Sodium 142 mmol/L (136-145)
[2025-06-05 05:18] LABS: Anion Gap 10 (5-15); Calcium 9.0 mg/dL (8.7-10.4); Carbon Dioxide 27 mmol/L (20-31)
[2025-06-05 05:23] LABS: BUN/Creatinine Ratio 12.0 (10.0-20.0)
[2025-06-05 05:28] LABS: Blood Urea Nitrogen 6 mg/dL (9-23); Glucose 134 mg/dL (74-106); Potassium 3.5 mmol/L (3.5-5.1)
[2025-06-05] MEDS: PANTOPRAZOLE 40 MG/10 ML VIAL INJ IV SCH (09:57)
[2025-06-05 12:45] LABS: Hematocrit 42.3 % (36.0-46.0); Hemoglobin 14.5 g/dL (12.2-16.2)
--- NOTE | 2025-06-05 13:14 | DVHINCON2 ---
GI Consult Consult Note GI consult note Date of Consultation: 06/05/2025 Chief Complaint: Colonic intussusception Referring Physician: Victor Hugo POLANCO H&P: 64-year-old female presented to ER with complaint of abdominal pain for one day. Patient says pain medication is not helping her. History from patient and family at bedside. Patient also had bowel movement with red blood in stool yesterday. Patient has nausea and no vomiting . Patient has history of chronic inflammatory demyelinating poly neuropathy and was on hospice for this reason. Patient admits to having poor appetite and has a weight loss of 30 lb in the recent past. Patient has had two episodes of bowel obstruction or intussusception for which she had bowel resection. At this time patient and family have decided for comfort care for patient Past Medical History: chronic inflammatory demyelinating polyneuropathy, anxiety, depression, CVA Past Surgical History: gastric bypass over 20 years ago, ex lap for intussusception x2 with bowel resection, cholecystectomy, breast augmentation, tubal ligation Social History: NO smoking, drinking ETOH and use of illegal drugs. Family History: Noncontributory Review of Systems: Constitutional: no fever, chill, weight loss HEENT: no eye pain, no hearing loss, no oral lesion, no scleral icterus Heart: no chest pain, no chest pressure Lung: no cough, no dyspnea with exertion Abdomen: see HPI Physical exam: General: NAD, AAOX3 Chest: lung olivares clear to auscultation Heart: RRR, no murmur Abdomen: non-distended,+ tenderness to palpation, +BS Labs: Labs Test 06/05/25 12:21 06/05/25 03:27 06/04/25 23:38 06/04/25 14:20 Range/Units Hemoglobin 14.5 12.2-16.2 g/dL Hematocrit 42.3 36.0-46.0 % White Blood Count 8.8 4.4-10.8 10^3/uL Red Blood Count 4.34 4.0-5.20 10^6/uL Mean Corpuscular Volume 91.8 80.0-100.0 fL Mean Corpuscular Hemoglobin 32.1 H 28.0-32.0 pg Mean Corpuscular Hemoglobin Concent 35.0 32.0-36.0 g/dL Red Cell Distribution Width 13.0 11.8-14.3 % Platelet Count 281 140-450 10^3/uL Mean Platelet Volume 9.1 6.9-10.8 fL Neutrophils (%) (Auto) 85.0 H 37.0-80.0 % Lymphocytes (%) (Auto) 9.9 L 10.0-50.0 % Monocytes (%) (Auto) 5.0 0.0-12.0 % Eosinophils (%) (Auto) 0.0 0.0-7.0 % Basophils (%) (Auto) 0.1 0.0-2.0 % Neutrophils # (Auto) 7.5 1.6-8.6 10 ^3/uL Lymphocytes # (Auto) 0.9 0.4-5.4 10 ^3/uL Monocytes # (Auto) 0.4 0-1.3 10 ^3/uL Eosinophils # (Auto) 0 0-0.8 10 ^3/uL Basophils # (Auto) 0 0-0.2 10 ^3/uL Nucleated Red Blood Cells 0.1 % Sodium Level 142 136-145 mmol/L Potassium Level 3.5 3.5-5.1 mmol/L Chloride Level 105 98-107 mmol/L Carbon Dioxide Level 27 20-31 mmol/L Anion Gap 10 5-15 Blood Urea Nitrogen 6 L 9-23 mg/dL Creatinine 0.50 L 0.550-1.02 mg/dL Glomerular Filtration Rate Calc 106 >90 mL/min BUN/Creatinine Ratio 12.0 10.0-20.0 Serum Glucose 134 H 74-106 mg/dL Lactic Acid Level 1.0 0.4-2.0 mmol/L Calcium Level 9.0 8.7-10.4 mg/dL Prothrombin Time 10.3 9.3-11.8 sec Prothrombin Time INR 0.97 0.9-1.15 Magnesium Level 2.1 1.6-2.6 mg/dL Total Bilirubin 0.3 0.2-1.0 mg/dL Aspartate Amino Transferase (AST) 26 13-40 U/L Alanine Aminotransferase (ALT) 16 7-40 U/L Alkaline Phosphatase 148 H 46-116 U/L Troponin I High Sensitivity 4 </=34 ng/L Total Protein 6.4 5.7-8.2 g/dL Albumin 4.1 3.2-4.8 g/dL Imaging: CT abdomen pelvis Impression: 1. Findings as above suggesting colocolic intussusception with suboptimally assessed wall thickening of the descending colon. Underlying neoplasm cannot be excluded. 2. Small perisplenic ascites. 3. Additional findings as detailed. Assessment: Colocolic intussusception Abdominal pain Plan: Discussed with Dr. Lee Pain management per hospital team Comfort care as patient and family request Discussed plan with patient family at bedside and RN Thank you for this consult Date of Service: Jun 05, 2025 Billing Provider: MELONIE BRYAN Common Visit Codes: CONSULT ONLY Consultation Codes: [id number] CONSULT <60MIN MELONIE BRYAN Jun 05, 2025 13:14
--- NOTE | 2025-06-05 15:36 | DVHPN2 ---
Subjective Acute abdominal pain 64-year-old female with a history of abdominal surgeries and gastric bypass and cholecystectomy comes with rectal bleeding and abdominal pain She is on hospice at home Changes from previous H/P or p: Changes Objective Vitals Vital Signs Date Time Temp Pulse Resp B/P (MAP) Pulse Ox O2 Delivery O2 Flow Rate FiO2 06/05/25 14:56 85 16 168/87 06/05/25 14:30 98.5 96 98.5 06/05/25 09:27 Room Air* 0 21 Intake/Output Intake and Output 06/05/25 07:00 Intake Total 2000 ml Balance 2000 ml Intake IV Total 2000 ml General Appearance: Alert, Oriented X3, Cooperative, moderate distress Lungs: Clear to auscultation, Normal air movement Cardiovascular: Regular rate, Normal S1, Normal S2 Abdomen: Normal bowel sounds, Soft, No tenderness Extremities: No edema Medications Current Medications Medications Dose Ordered Sig/Debi Route Start Time Stop Time Status Last Admin Dose Admin Ondansetron HCl 4 mg Q6HPRN PRN IV 06/04/25 23:00 06/05/25 12:41 4 MG Sodium Chloride 1,000 ml @ 100 mls/hr Q10H IV 06/04/25 23:00 06/04/25 23:43 100 MLS/HR Piperacillin Sod/ Tazobactam Sod 100 ml @ 25 mls/hr Q8HR IV 06/04/25 23:30 06/05/25 14:53 25 MLS/HR Pantoprazole Sodium 40 mg DAILY IV 06/05/25 10:00 06/05/25 09:57 40 MG Hydromorphone HCl 1 mg Q4HR PRN IV 06/05/25 04:45 06/05/25 14:06 1 MG Laboratory Results Laboratory Tests 06/05/25 03:27 06/05/25 12:21 Chemistry Test 06/04/25 23:38 06/05/25 03:27 Magnesium Level 2.1 mg/dL (1.6-2.6) Calcium Level 9.0 mg/dL (8.7-10.4) Coagulation Test 06/04/25 23:38 Prothrombin Time 10.3 sec (9.3-11.8) Prothrombin Time INR 0.97 (0.9-1.15) Assessment/Plan Assessment/Plan Acute abdominal pain due to colonic intussusception Colonic intussusception Chronic inflammatory demyelinating polyneuropathy Anxiety Depression History of gastric bypass History of intussusception with 2 bowel resections in the past Cholecystectomy Breast augmentation Tubal ligation Plan IV fluids NPO except for ice chips Surgical consult recommended surgical intervention versus palliative care and the family elected to go with the elective care and comfort care Pain management with IV Dilaudid Broad-spectrum antibiotics DNR Advance directives discussed with the family at the bedside Plan discussed with: Patient, Daughter, Son Date of Service: Jun 05, 2025 Billing Provider: ZACH GALDAMEZ MD Common Visit Codes: [id number] INP/OBS CARE(HIGH) Secondary Visit Codes: [id number] CARE PLAN 30 MINUTES ZACH GALDAMEZ MD Jun 05, 2025 15:36
[2025-06-05 18:08] LABS: Hematocrit 45.7 % (36.0-46.0); Hemoglobin 15.2 g/dL (12.2-16.2)
[2025-06-06 06:15] LABS: Hematocrit 45.6 % (36.0-46.0); Hemoglobin 15.8 g/dL (12.2-16.2); Mean Corpuscular Hemoglobin 32.5 pg (28.0-32.0); Mean Corpuscular Volume 93.5 fL (80.0-100.0); Nucleated Red Blood Cells % 0.1 %
[2025-06-06 06:39] LABS: Alanine Aminotransferase 21 U/L (7-40); Albumin 4.0 g/dL (3.2-4.8); Anion Gap 14 (5-15); BUN/Creatinine Ratio 14.1 (10.0-20.0); Bilirubin, Total 0.4 mg/dL (0.2-1.0); Calcium 9.4 mg/dL (8.7-10.4); Carbon Dioxide 26 mmol/L (20-31); Chloride 103 mmol/L (98-107); Magnesium 2.3 mg/dL (1.6-2.6); Potassium 3.8 mmol/L (3.5-5.1); Sodium 143 mmol/L (136-145); Total Protein 6.4 g/dL (5.7-8.2)
[2025-06-06 06:45] LABS: Alkaline Phosphatase 128 U/L (46-116); Blood Urea Nitrogen 9 mg/dL (9-23); Glucose 145 mg/dL (74-106)
[2025-06-06 08:10] VITALS: PULSE 60
[2025-06-06 09:00] VITALS: BP 161/71; PULSE 56; RESP 16; TEMP 97.8; O2SAT 98
[2025-06-06] MEDS: HYDROmorphone HCL 2 MG/ML VL/or syr IV PRN (09:50)
--- NOTE | 2025-06-06 11:11 | DVHDS2 ---
Discharge Summary Date of Admission Jun 04, 2025 at 20:19 Date of Discharge: Jun 06, 2025 Labs/Diagnostic Data: Laboratory Results Test 06/06/25 05:30 06/05/25 03:27 06/04/25 23:38 06/04/25 14:20 White Blood Count 15.3 10^3/uL (4.4-10.8) Red Blood Count 4.87 10^6/uL (4.0-5.20) Hemoglobin 15.8 g/dL (12.2-16.2) Hematocrit 45.6 % (36.0-46.0) Mean Corpuscular Volume 93.5 fL (80.0-100.0) Mean Corpuscular Hemoglobin 32.5 pg (28.0-32.0) Mean Corpuscular Hemoglobin Concent 34.7 g/dL (32.0-36.0) Red Cell Distribution Width 13.2 % (11.8-14.3) Platelet Count 321 10^3/uL (140-450) Mean Platelet Volume 9.2 fL (6.9-10.8) Neutrophils (%) (Auto) 88.0 % (37.0-80.0) Lymphocytes (%) (Auto) 7.3 % (10.0-50.0) Monocytes (%) (Auto) 4.4 % (0.0-12.0) Eosinophils (%) (Auto) 0.0 % (0.0-7.0) Basophils (%) (Auto) 0.3 % (0.0-2.0) Neutrophils # (Auto) 13.5 10 ^3/uL (1.6-8.6) Lymphocytes # (Auto) 1.1 10 ^3/uL (0.4-5.4) Monocytes # (Auto) 0.7 10 ^3/uL (0-1.3) Eosinophils # (Auto) 0 10 ^3/uL (0-0.8) Basophils # (Auto) 0.1 10 ^3/uL (0-0.2) Nucleated Red Blood Cells 0.1 % Sodium Level 143 mmol/L (136-145) Potassium Level 3.8 mmol/L (3.5-5.1) Chloride Level 103 mmol/L (98-107) Carbon Dioxide Level 26 mmol/L (20-31) Anion Gap 14 (5-15) Blood Urea Nitrogen 9 mg/dL (9-23) Creatinine 0.64 mg/dL (0.550-1.02) Glomerular Filtration Rate Calc 100 mL/min (>90) BUN/Creatinine Ratio 14.1 (10.0-20.0) Serum Glucose 145 mg/dL (74-106) Calcium Level 9.4 mg/dL (8.7-10.4) Magnesium Level 2.3 mg/dL (1.6-2.6) Total Bilirubin 0.4 mg/dL (0.2-1.0) Aspartate Amino Transferase (AST) 31 U/L (13-40) Alanine Aminotransferase (ALT) 21 U/L (7-40) Alkaline Phosphatase 128 U/L (46-116) Total Protein 6.4 g/dL (5.7-8.2) Albumin 4.0 g/dL (3.2-4.8) Lactic Acid Level 1.0 mmol/L (0.4-2.0) Prothrombin Time 10.3 sec (9.3-11.8) Prothrombin Time INR 0.97 (0.9-1.15) Troponin I High Sensitivity 4 ng/L (</=34) Other Laboratory Tests 06/06/25 05:30 Brief Hx & Hospital Course: Final diagnoses: Acute abdominal pain due to colonic intussusception Colonic intussusception Chronic inflammatory demyelinating polyneuropathy Anxiety Depression History of gastric bypass History of intussusception with 2 bowel resections in the past Cholecystectomy Breast augmentation Tubal ligation 64-year-old was admitted for rectal bleeding abdominal pain and was found to have a colonic intussusception Surgical consult was done and she chose to go through conservative treatment She was NPO initially and then this morning we started clear liquid diet She is still in severe abdominal pain however she is adamant she does not want any surgery and wants comfort care at home with hospice. The patient was on hospice at home as she would like to go home back on hospice She was given Dilaudid IV here and she is more comfortable She takes Klonopin for anxiety which will be ordered Start clear liquid diet now Discharged home on hospice later today Condition at Discharge: Poor Final Diagnosis/Problems List Acute abdominal pain due to colonic intussusception Colonic intussusception Chronic inflammatory demyelinating polyneuropathy Anxiety Depression History of gastric bypass History of intussusception with 2 bowel resections in the past Cholecystectomy Breast augmentation Tubal ligation Discharge Disposition: Hospice - Home SNF Discharge Will this Physician continue t: No Discharge Instruct/Medications Scheduled Fluoxetine Hcl (Fluoxetine Hcl), 1 CAP PO QAM Scheduled PRN Cholestyramine (Questran Powder), 4 GM PO BIDBRS PRN Clonazepam (Klonopin), 1 TAB PO BID PRN Discharge Statement: "Patient was advised to return to the ER or call 911 if any headaches, dizziness, shortness of breath, chest pain, abdominal pain, bleeding, fevers, or worsening of medical condition. Patient was counseled about treatment plan, medications, possible side effects, patientverbalized understanding. All questions were answered to the best of my ability. This discharge took greater then 30 minutes in planning, reviewing documentation, counseling the patient, and discussing with other team members." ASSESSMENT ASSESSMENT Assessment Date of Service: Jun 06, 2025 Billing Provider: ZACH GALDAMEZ MD Common Visit Codes: [id number] DISCH DAY >30min ZACH GALDAMEZ MD Jun 06, 2025 11:11
[2025-06-06] MEDS ORDERED: clonazePAM 0.5 MG TAB PO PRN (11:15)
[2025-06-06 12:57] VITALS: BP 151/95; PULSE 53; RESP 16; TEMP 97.7; O2SAT 95
--- NOTE | 2025-06-06 13:14 | DVHPN2 ---
Subjective Patient feeling slightly better Complains of slight nausea no vomiting Last bowel movement last night still with some red blood No abdominal pain Patient is tolerating clear liquid diet Changes from previous H/P or p: No Changes Objective Vitals Vital Signs Date Time Temp Pulse Resp B/P (MAP) Pulse Ox O2 Delivery O2 Flow Rate FiO2 06/06/25 12:57 97.7 53 16 151/95 (113) 95 97.7 06/06/25 08:10 Room Air* 0 21 Intake/Output Intake and Output 06/06/25 07:00 Intake Total 100 ml Balance 100 ml Intake Oral 0 ml IV Total 100 ml # Voids 4 # Bowel Movements 3 General Appearance: Alert, Oriented X3, Cooperative, No acute distress, mild distress, moderate distress, severe distress, Other Lungs: Clear to auscultation, Normal air movement, Other Cardiovascular: Regular rate, Normal S1, Normal S2, No murmurs, Gallops, Rubs, Other Abdomen: Normal bowel sounds, Soft, No tenderness, No hepatospenomegaly, No masses, Other Extremities: No edema Medications Current Medications Medications Dose Ordered Sig/Debi Route Start Time Stop Time Status Last Admin Dose Admin Ondansetron HCl 4 mg Q6HPRN PRN IV 06/04/25 23:00 06/06/25 09:50 4 MG Sodium Chloride 1,000 ml @ 100 mls/hr Q10H IV 06/04/25 23:00 06/05/25 22:41 100 MLS/HR Piperacillin Sod/ Tazobactam Sod 100 ml @ 25 mls/hr Q8HR IV 06/04/25 23:30 06/06/25 06:23 25 MLS/HR Pantoprazole Sodium 40 mg DAILY IV 06/05/25 10:00 06/06/25 09:50 40 MG Hydromorphone HCl 1 mg Q2HPRN PRN IV 06/05/25 15:45 06/06/25 11:27 1 MG Hydromorphone HCl 2 mg Q4HPRN PRN IV 06/05/25 15:45 06/06/25 09:50 2 MG Clonazepam 1 mg Q8HP PRN PO 06/06/25 11:15 UNV Laboratory Results Laboratory Tests 06/06/25 05:30 Chemistry Test 06/06/25 05:30 Albumin 4.0 g/dL (3.2-4.8) Calcium Level 9.4 mg/dL (8.7-10.4) Magnesium Level 2.3 mg/dL (1.6-2.6) Total Protein 6.4 g/dL (5.7-8.2) LFT Test 06/06/25 05:30 Alanine Aminotransferase (ALT) 21 U/L (7-40) Alkaline Phosphatase 128 U/L (46-116) H Aspartate Amino Transferase (AST) 31 U/L (13-40) Total Bilirubin 0.4 mg/dL (0.2-1.0) Labs and/or images reviewed: Labs reviewed by me, Image(s) reviewed by me Assessment/Plan Assessment/Plan Colocolic intussusception Abdominal pain Plan: Discussed with Dr. Lee Full liquid diet Outpatient GI follow-up recommended Plan discussed with: Patient, Son Date of Service: Jun 06, 2025 Billing Provider: MELONIE BRYAN Common Visit Codes: [id number] INP/OBS CARE(HIGH) MELONIE BRYAN Jun 06, 2025 13:14
[2025-06-06 13:29] VITALS: TEMP 36.5
== END 2025-06-06 14:44 | disposition hospice, home (50) | DRG 389 ==
LOC: ER 13:08 → EDBD 13:08 → OVERFLOW 20:19 → TELE-CENTR 06-05 14:34
PROVIDERS: ADMIT Internal Medicine Geriatric Medicine; ATTEND Internal Medicine Geriatric Medicine
DX: K56.1 Intussusception (principal); G61.81 Chronic inflammatory demyelinating polyneuritis; F32.A Depression, unspecified; Z66 Do not resuscitate; Z51.5 Encounter for palliative care; F41.9 Anxiety disorder, unspecified; E87.6 Hypokalemia; Z88.1 Allergy status to other antibiotic agents; Z90.49 Acquired absence of other specified parts of digestive tract; Z98.84 Bariatric surgery status; Z86.73 Personal history of transient ischemic attack (TIA), and cerebral infarction without residual deficits; Z79.899 Other long term (current) drug therapy
CPT/HCPCS: 36415; 71045; 74176; 80048; 80053; 83605; 83735; 84132; 84484; 85014; 85018; 85025; 85610; 96361; 96374; 96375; 96376; 99291; 99292; G0378; J2405; J2470; J2543